=== PATIENT | male | born 1955 | race Caucasian/White ===

== ENCOUNTER 2018-05-10 11:36 | Inpatient (IN) | payer MEDICARE, OTHER ==
[~2018-05-10] VITALS: Ht 180.3 cm; Wt 82.0 kg
[2018-05-10 12:12] LABS: BASOPHILS # (AUTO) 0.1 X10'3 (0-0.2); BASOPHILS % (AUTO) 0.7 % (0-1); EOSINOPHILS # (AUTO) 0.2 X10'3 (0-0.9); EOSINOPHILS % (AUTO) 2.2 % (0-6); HEMATOCRIT 49.5 % (42.0-52.0); HEMOGLOBIN 16.7 g/dl (14.0-17.9); LYMPHOCYTES # (AUTO) 1.9 X10'3 (1.1-4.8); LYMPHOCYTES % (AUTO) 20.7 % (21-51); MEAN CORPUSCULAR HEMOGLOBIN 33.3 PG (27.0-31.0); MEAN CORPUSCULAR HGB CONC 33.8 % (33.0-36.5); MEAN CORPUSCULAR VOLUME 98.8 FL (78-98); MEAN PLATELET VOLUME 8.6 FL (7.4-10.4); MONOCYTES # (AUTO) 0.7 X10'3 (0-0.9); MONOCYTES % (AUTO) 8.3 % (2-12); NEUTROPHILS # (AUTO) 6.2 X10'3 (1.8-7.7); NEUTROPHILS % (AUTO) 68.1 % (42-75); PLATELET COUNT 232 X10'3 (140-440); RED BLOOD COUNT 5.01 X10'6 (4.70-6.10); RED CELL DISTRIBUTION WIDTH 12.3 % (11.5-14.5); WHITE BLOOD COUNT 9.1 X10'3 (4.5-11.0)
[2018-05-10 12:23] LABS: PARTIAL THROMBOPLASTIN TIME 28 SECONDS (22-32); PROTHROMBIN TIME 10.6 SECONDS (9.0-12.0)
[2018-05-10] MEDS ORDERED: aspirin 81mg tab.chew PO ONE (12:25)
[2018-05-10 12:27] LABS: ANION GAP 8 (8-16); CHLORIDE 100 MMOL/L (99-107); GLUCOSE 103 MG/DL (70-104); POTASSIUM 3.8 MMOL/L (3.5-5.1); SODIUM 135 MMOL/L (135-145); TOTAL CARBON DIOXIDE 27.3 MMOL/L (24-32)
[2018-05-10 12:28] LABS: ALANINE AMINOTRANSFERASE 49 U/L (12-78); ALBUMIN 4.2 G/DL (3.4-5.0); ALBUMIN/GLOBULIN RATIO 1.2 (1.1-1.5); ALKALINE PHOSPHATASE 72 IU/L (46-116); ASPARTATE AMINO TRANSFERASE 25 U/L (10-37); BILIRUBIN,TOTAL 1.5 MG/DL (0.1-1.0); BLOOD UREA NITROGEN 14 MG/DL (7-18); BUN/CREATININE RATIO 14.9 (5.4-32.0); CALCIUM 9.6 MG/DL (8.5-10.1); CREATININE 0.94 MG/DL (0.60-1.10); TOTAL PROTEIN 7.8 G/DL (6.4-8.2); eGFR 81 ML/MIN
[2018-05-10] MEDS ORDERED: aminophylline 250mg/10ml inj. IV PRN (13:00)
[2018-05-10] MEDS ORDERED: albuterol 2.5 MG/3 ML nebule NEB PRN (13:00)
[2018-05-10] MEDS ORDERED: acetaminophen 325mg tablet PO PRN ×2 (13:00)
[2018-05-10] MEDS ORDERED: HYDROcodone/acetaminophen 5mg/325mg tablet PO PRN (13:00)
[2018-05-10] MEDS ORDERED: HYDROcodone/acetaminophen 10/325mg tab PO PRN (13:00)
[2018-05-10] MEDS ORDERED: metoprolol tartrate 1mg/ml inj IV PRN (13:00)
[2018-05-10] MEDS ORDERED: mag hydrox/Alum hydrox/simeth 30ml oral suspension PO PRN (13:00)
[2018-05-10] MEDS ORDERED: regadenoson 0.4mg/5ml syringe IV ONE (13:00)
[2018-05-10] MEDS ORDERED: ondansetron/PF 4mg/2ml inj IV PRN (13:00)
[2018-05-10] MEDS ORDERED: magnesium hydroxide 30ml (MOM) UD suspension PO PRN (13:00)
[2018-05-10] MEDS ORDERED: nitroGLYCERIN 0.4mg SUBLingual tab SL PRN (13:00)
[2018-05-10] MEDS ORDERED: POTA10TA19 PO (14:09)
[2018-05-10] MEDS ORDERED: ASPI-611 PO (14:09)
[2018-05-10] MEDS ORDERED: GUAI400T77 PO (14:09)
[2018-05-10] MEDS ORDERED: LISI-604 PO (14:09)
[2018-05-10] MEDS ORDERED: TERA2CAP4 PO (14:09)
[2018-05-10] MEDS ORDERED: TIOT18CA3 INH (14:09)
[2018-05-10] MEDS ORDERED: ALB0.5UD IH (14:09)
[2018-05-10] MEDS ORDERED: GABA-532 PO (14:09)
[2018-05-10] MEDS ORDERED: ATOR40TA PO (14:09)
[2018-05-10] MEDS ORDERED: SILD50TA PO (14:09)
[2018-05-10] MEDS ORDERED: FISH12002 PO (14:09)
[2018-05-10] MEDS ORDERED: CHLO25TA2 PO (14:09)
[2018-05-10] MEDS ORDERED: FINA5TAB11 PO (14:09)
[2018-05-10 16:15] VITALS: BP 131/78
[2018-05-10] MEDS ORDERED: guaiFENesin 200 MG/10 ML oral syrup UD cup PO PRN (18:30)
[2018-05-10 20:00] VITALS: BP 102/65
[2018-05-10] MEDS: ipratropium 0.5 MG/2.5ML nebule IH SCH (20:39)
[2018-05-10] MEDS ORDERED: temazepam 15mg capsule PO PRN (21:00)
[2018-05-10] MEDS: Terazosin 1mg capsule PO SCH (21:30)
[2018-05-10] MEDS: gabapentin 300mg capsule PO SCH (21:30)
[2018-05-11] VITALS (10 sets, daily range): BP systolic 92–130; BP diastolic 59–79
[2018-05-11] MEDS: ipratropium 0.5 MG/2.5ML nebule IH SCH ×4 (02:47→20:32)
[2018-05-11 05:46] LABS: BASOPHILS # (AUTO) 0.1 X10'3 (0-0.2); BASOPHILS % (AUTO) 1.1 % (0-1); EOSINOPHILS # (AUTO) 0.3 X10'3 (0-0.9); HEMATOCRIT 48.5 % (42.0-52.0); HEMOGLOBIN 16.3 g/dl (14.0-17.9); LYMPHOCYTES # (AUTO) 1.7 X10'3 (1.1-4.8); MEAN CORPUSCULAR HEMOGLOBIN 33.4 PG (27.0-31.0); MEAN CORPUSCULAR HGB CONC 33.6 % (33.0-36.5); MEAN CORPUSCULAR VOLUME 99.5 FL (78-98); MONOCYTES # (AUTO) 0.9 X10'3 (0-0.9); MONOCYTES % (AUTO) 10.2 % (2-12); NEUTROPHILS # (AUTO) 5.7 X10'3 (1.8-7.7); NEUTROPHILS % (AUTO) 65.7 % (42-75); PLATELET COUNT 239 X10'3 (140-440); RED BLOOD COUNT 4.88 X10'6 (4.70-6.10); RED CELL DISTRIBUTION WIDTH 12.4 % (11.5-14.5); WHITE BLOOD COUNT 8.7 X10'3 (4.5-11.0)
[2018-05-11 06:07] LABS: ALBUMIN 3.6 G/DL (3.4-5.0); ANION GAP 9 (8-16); BLOOD UREA NITROGEN 17 MG/DL (7-18); BUN/CREATININE RATIO 19.3 (5.4-32.0); CALCIUM 8.7 MG/DL (8.5-10.1); CHLORIDE 100 MMOL/L (99-107); CHOLESTEROL 128 MG/DL (0-200); CREATININE 0.88 MG/DL (0.60-1.10); GLUCOSE 105 MG/DL (70-104); LDL CHOLESTEROL 76 MG/DL (50-100); SODIUM 137 MMOL/L (135-145); TOTAL CARBON DIOXIDE 27.8 MMOL/L (24-32); TRIGLYCERIDES 65 MG/DL (20-135); eGFR 87 ML/MIN
[2018-05-11 06:08] LABS: POTASSIUM 3.5 MMOL/L (3.5-5.1)
[2018-05-11 06:42] LABS: CHOL/HDL RATIO 2.8 (0.00-4.99); HDL CHOLESTEROL 45 MG/DL (35-60)
[2018-05-11] MEDS ORDERED: FISH OIL PO SCH (08:00)
[2018-05-11] MEDS ORDERED: [UNRECOGNIZED DRUG - OTHER] PO SCH (08:00)
[2018-05-11] MEDS ORDERED: BORAGE PO SCH (08:00)
[2018-05-11] MEDS ORDERED: regadenoson 0.4mg/5ml syringe IV ONE ×2 (08:00→09:14)
[2018-05-11] MEDS ORDERED: FLAX PO SCH (08:00)
[2018-05-11] MEDS ORDERED: aminophylline inj. 0 ML IV ONE (09:14)
[2018-05-11] MEDS: gabapentin 300mg capsule PO SCH ×3 (10:29→21:04)
[2018-05-11] MEDS: lisinopril 5mg tablet PO SCH (10:29)
[2018-05-11] MEDS: atorvastatin 20mg tablet PO SCH (10:30)
[2018-05-11] MEDS: aspirin 81mg tablet.DR PO SCH (10:30)
[2018-05-11] MEDS: potassium Cl 20 mEq SR tablet PO SCH (10:30)
[2018-05-11] MEDS: chlorthalidone 25mg tablet PO SCH (10:31)
[2018-05-11] MEDS: finasteride 5mg tablet PO SCH (10:31)
[2018-05-11] MEDS: heparin, porcine 5000 units/ml vial SQ SCH (20:00)
[2018-05-11] MEDS: carVEDilol 3.125mg tablet PO SCH (20:00)
[2018-05-11] MEDS: Terazosin 1mg capsule PO SCH (21:04)
[2018-05-12] VITALS (12 sets, daily range): BP systolic 88–135; BP diastolic 47–79
[2018-05-12] MEDS: ipratropium 0.5 MG/2.5ML nebule IH SCH ×4 (02:49→20:44)
[2018-05-12 04:57] LABS: BASOPHILS # (AUTO) 0.1 X10'3 (0-0.2); BASOPHILS % (AUTO) 1.1 % (0-1); EOSINOPHILS # (AUTO) 0.2 X10'3 (0-0.9); EOSINOPHILS % (AUTO) 1.9 % (0-6); HEMATOCRIT 47.3 % (42.0-52.0); HEMOGLOBIN 16.4 g/dl (14.0-17.9); LYMPHOCYTES # (AUTO) 1.8 X10'3 (1.1-4.8); MEAN CORPUSCULAR HEMOGLOBIN 33.8 PG (27.0-31.0); MEAN CORPUSCULAR HGB CONC 34.5 % (33.0-36.5); MEAN CORPUSCULAR VOLUME 97.8 FL (78-98); MEAN PLATELET VOLUME 8.9 FL (7.4-10.4); MONOCYTES # (AUTO) 0.8 X10'3 (0-0.9); NEUTROPHILS # (AUTO) 5.4 X10'3 (1.8-7.7); PLATELET COUNT 223 X10'3 (140-440); RED BLOOD COUNT 4.84 X10'6 (4.70-6.10); WHITE BLOOD COUNT 8.3 X10'3 (4.5-11.0)
[2018-05-12 06:53] LABS: ALBUMIN 3.5 G/DL (3.4-5.0); ANION GAP 11 (8-16); BLOOD UREA NITROGEN 21 MG/DL (7-18); BUN/CREATININE RATIO 20.2 (5.4-32.0); CALCIUM 9.1 MG/DL (8.5-10.1); CHLORIDE 100 MMOL/L (99-107); CREATININE 1.04 MG/DL (0.60-1.10); GLUCOSE 108 MG/DL (70-104); POTASSIUM 3.6 MMOL/L (3.5-5.1); SODIUM 136 MMOL/L (135-145); TOTAL CARBON DIOXIDE 24.7 MMOL/L (24-32); eGFR 72 ML/MIN
[2018-05-12] MEDS: carVEDilol 3.125mg tablet PO SCH ×2 (07:39→20:00)
[2018-05-12] MEDS: chlorthalidone 25mg tablet PO SCH (07:39)
[2018-05-12] MEDS: aspirin 81mg tablet.DR PO SCH (07:39)
[2018-05-12] MEDS: potassium Cl 20 mEq SR tablet PO SCH (07:39)
[2018-05-12] MEDS: atorvastatin 20mg tablet PO SCH (07:40)
[2018-05-12] MEDS: finasteride 5mg tablet PO SCH (07:40)
[2018-05-12] MEDS: gabapentin 300mg capsule PO SCH ×3 (07:40→20:29)
[2018-05-12] MEDS: lisinopril 5mg tablet PO SCH (07:40)
[2018-05-12] MEDS: heparin, porcine 5000 units/ml vial SQ SCH (07:41)
[2018-05-12] MEDS ORDERED: midazolam 2 mg/2 ml injection ONE (13:23)
[2018-05-12] MEDS ORDERED: nitroGLYCERIN-Tridil 50MG/D5W 250 ML IV ONE (13:23)
[2018-05-12] MEDS ORDERED: iohexol 350MG/ML 100ml bottle IV ONE (13:24)
[2018-05-12] MEDS ORDERED: LIDOcaine 1% 30ml preserv. free vial ONE (13:24)
[2018-05-12] MEDS ORDERED: fentaNYL/PF 50MCG/1 ML 2ML syringe ONE (13:24)
[2018-05-12] MEDS ORDERED: heparin 1,000unit/ml 10ml vial 10 ML ONE (13:24)
[2018-05-12] MEDS ORDERED: iohexol 350 MG/ML 50ML vial IV ONE (13:24)
[2018-05-12 17:46] LABS: ISTAT Hct MIX 46 %PCV (42-52); ISTAT O2 SATURATION MIX VENOUS 66 % (60-80); ISTAT SOURCE MIX
[2018-05-12 17:46] LABS: ISTAT HGB ART 15.6 g/dl (14.0-18.0); ISTAT Hct ART 46 %PCV (42-52); ISTAT O2 SATURATION ARTERIAL 94 % (95-98); ISTAT SOURCE ART
[2018-05-12] MEDS ORDERED: normal saline 1000ml 1,000 ML IV ONE (17:55)
[2018-05-12] MEDS: Terazosin 1mg capsule PO SCH (20:29)
[2018-05-13] VITALS: BP 98/68
[2018-05-13] MEDS: ipratropium 0.5 MG/2.5ML nebule IH SCH ×2 (02:23→08:39)
[2018-05-13 04:00] VITALS: BP 115/73
[2018-05-13 05:13] LABS: BASOPHILS # (AUTO) 0.1 X10'3 (0-0.2); BASOPHILS % (AUTO) 0.9 % (0-1); EOSINOPHILS # (AUTO) 0.2 X10'3 (0-0.9); EOSINOPHILS % (AUTO) 1.8 % (0-6); HEMATOCRIT 45.6 % (42.0-52.0); HEMOGLOBIN 15.5 g/dl (14.0-17.9); LYMPHOCYTES # (AUTO) 1.5 X10'3 (1.1-4.8); LYMPHOCYTES % (AUTO) 17.2 % (21-51); MEAN CORPUSCULAR HEMOGLOBIN 33.5 PG (27.0-31.0); MEAN CORPUSCULAR HGB CONC 33.9 % (33.0-36.5); MEAN CORPUSCULAR VOLUME 98.9 FL (78-98); MEAN PLATELET VOLUME 9.2 FL (7.4-10.4); MONOCYTES # (AUTO) 0.8 X10'3 (0-0.9); MONOCYTES % (AUTO) 8.5 % (2-12); NEUTROPHILS # (AUTO) 6.4 X10'3 (1.8-7.7); NEUTROPHILS % (AUTO) 71.6 % (42-75); PLATELET COUNT 224 X10'3 (140-440); RED BLOOD COUNT 4.61 X10'6 (4.70-6.10); RED CELL DISTRIBUTION WIDTH 12.2 % (11.5-14.5); WHITE BLOOD COUNT 8.9 X10'3 (4.5-11.0)
[2018-05-13 05:22] LABS: ALBUMIN 3.3 G/DL (3.4-5.0); ANION GAP 7 (8-16); BLOOD UREA NITROGEN 20 MG/DL (7-18); BUN/CREATININE RATIO 21.3 (5.4-32.0); CALCIUM 8.6 MG/DL (8.5-10.1); CHLORIDE 102 MMOL/L (99-107); CREATININE 0.94 MG/DL (0.60-1.10); GLUCOSE 101 MG/DL (70-104); POTASSIUM 3.7 MMOL/L (3.5-5.1); SODIUM 136 MMOL/L (135-145); TOTAL CARBON DIOXIDE 26.7 MMOL/L (24-32); eGFR 81 ML/MIN
[2018-05-13 07:00] VITALS: BP 96/63
[2018-05-13] MEDS: carVEDilol 3.125mg tablet PO SCH (07:24)
[2018-05-13] MEDS: chlorthalidone 25mg tablet PO SCH (07:24)
[2018-05-13] MEDS: lisinopril 5mg tablet PO SCH (07:24)
[2018-05-13] MEDS: gabapentin 300mg capsule PO SCH (07:31)
[2018-05-13] MEDS: finasteride 5mg tablet PO SCH (07:31)
[2018-05-13] MEDS: potassium Cl 20 mEq SR tablet PO SCH (07:31)
[2018-05-13] MEDS: atorvastatin 20mg tablet PO SCH (07:31)
[2018-05-13] MEDS: aspirin 81mg tablet.DR PO SCH (07:31)
[2018-05-13 11:48] VITALS: BP 101/74
[2018-05-13] MEDS ORDERED: COR3.125T PO (12:15)
== END 2018-05-13 12:52 | disposition home or self-care (01) | DRG 287 ==
LOC: ER 11:37 → OBSVTOIN 12:58 → SUR 3N 12:58 → CMPBEDREQ 19:45
PROVIDERS: ADMIT Hospitalist; ATTEND Family Medicine
PROC: 4A02XM4 Measurement of Cardiac Total Activity, External Approach (ICD-10-PCS; 2018-05-11)
PROC: 3E033HZ Introduction of Radioactive Substance into Peripheral Vein, Percutaneous Approach (ICD-10-PCS; 2018-05-11)
PROC: 3E02340 Introduction of Influenza Vaccine into Muscle, Percutaneous Approach (ICD-10-PCS; 2018-05-11)
PROC: 4A023N8 Measurement of Cardiac Sampling and Pressure, Bilateral, Percutaneous Approach (ICD-10-PCS; principal; 2018-05-12)
PROC: B2111ZZ Fluoroscopy of Multiple Coronary Arteries using Low Osmolar Contrast (ICD-10-PCS; 2018-05-12)
PROC: B2151ZZ Fluoroscopy of Left Heart using Low Osmolar Contrast (ICD-10-PCS; 2018-05-12)
DX: I25.10 Atherosclerotic heart disease of native coronary artery without angina pectoris (principal); B19.10 Unspecified viral hepatitis B without hepatic coma; B19.20 Unspecified viral hepatitis C without hepatic coma; E78.00 Pure hypercholesterolemia, unspecified; E78.5 Hyperlipidemia, unspecified; F12.90 Cannabis use, unspecified, uncomplicated; J44.9 Chronic obstructive pulmonary disease, unspecified; G47.33 Obstructive sleep apnea (adult) (pediatric); I10 Essential (primary) hypertension; N40.0 Benign prostatic hyperplasia without lower urinary tract symptoms; N52.9 Male erectile dysfunction, unspecified; F17.210 Nicotine dependence, cigarettes, uncomplicated; Z79.82 Long term (current) use of aspirin; Z79.899 Other long term (current) drug therapy; Z82.5 Family history of asthma and other chronic lower respiratory diseases; Z23 Encounter for immunization; Z72.89 Other problems related to lifestyle; Z71.6 Tobacco abuse counseling
CPT/HCPCS: 36415; 71046; 78452; 80048; 80053; 80061; 82803; 83605; 84484; 85014; 85025; 85610; 85730; 87040; 87070; 93005; 93017; 93306; 93460; 94640; 94760; 99152; 99285; A6257; A9500; C1769; G0378; J0280; J1644; J2250; J3010; J3490; J7030; Q2037; Q9967

== ENCOUNTER 2018-06-14 13:29 | Inpatient (IN) | payer MEDICARE, OTHER ==
[~2018-06-14] VITALS: Ht 180.3 cm; Wt 78.2 kg
[~2018-06-14 13:29] MED LIST: ALB0.5UD IH; ASPI-611 PO; ATOR40TA PO; CHLO25TA2 PO; COR3.125T PO; FINA5TAB11 PO; FISH12002 PO; GABA-532 PO; GUAI400T77 PO; LISI-604 PO; POTA10TA19 PO; TERA2CAP4 PO; TIOT18CA3 INH
[2018-06-14] MEDS ORDERED: albuterol 2.5 MG/3 ML nebule ONE (13:45)
[2018-06-14] MEDS ORDERED: methylPREDNISolone sod succ 125mg/2ml vial IV ONE (13:45)
[2018-06-14] MEDS ORDERED: normal saline 1000ML IV soln IVB ONE (13:45)
[2018-06-14] MEDS ORDERED: morphine 4 MG/ML inj SYRINge IV ONE (13:45)
[2018-06-14] MEDS ORDERED: magnesium 2GM in 50ml NS 50 ML IV ONE (13:45)
[2018-06-14] MEDS ORDERED: albuterol 2.5 MG/3 ML nebule CONTNEB PRN (13:45)
[2018-06-14 14:05] LABS: BASOPHILS % (AUTO) 0.4 % (0-1); EOSINOPHILS # (AUTO) 0.1 X10'3 (0-0.9); EOSINOPHILS % (AUTO) 0.7 % (0-6); HEMATOCRIT 49.7 % (42.0-52.0); HEMOGLOBIN 16.9 g/dl (14.0-17.9); MEAN CORPUSCULAR HEMOGLOBIN 33.4 PG (27.0-31.0); MEAN CORPUSCULAR VOLUME 98.3 FL (78-98); MEAN PLATELET VOLUME 8.3 FL (7.4-10.4); MONOCYTES # (AUTO) 0.8 X10'3 (0-0.9); MONOCYTES % (AUTO) 6.1 % (2-12); NEUTROPHILS # (AUTO) 10.4 X10'3 (1.8-7.7); NEUTROPHILS % (AUTO) 84.8 % (42-75); PLATELET COUNT 278 X10'3 (140-440); RED BLOOD COUNT 5.06 X10'6 (4.70-6.10); RED CELL DISTRIBUTION WIDTH 11.9 % (11.5-14.5); WHITE BLOOD COUNT 12.3 X10'3 (4.5-11.0)
[2018-06-14 14:18] LABS: ALANINE AMINOTRANSFERASE 43 U/L (12-78); ALBUMIN 4.1 G/DL (3.4-5.0); ALBUMIN/GLOBULIN RATIO 1.1 (1.1-1.5); ALKALINE PHOSPHATASE 80 IU/L (46-116); ANION GAP 12 (8-16); ASPARTATE AMINO TRANSFERASE 23 U/L (10-37); BILIRUBIN,TOTAL 0.7 MG/DL (0.1-1.0); BLOOD UREA NITROGEN 15 MG/DL (7-18); BUN/CREATININE RATIO 13.3 (5.4-32.0); CALCIUM 9.4 MG/DL (8.5-10.1); CHLORIDE 98 MMOL/L (99-107); CREATININE 1.13 MG/DL (0.60-1.10); GLUCOSE 129 MG/DL (70-104); POTASSIUM 3.9 MMOL/L (3.5-5.1); SODIUM 136 MMOL/L (135-145); TOTAL CARBON DIOXIDE 26.4 MMOL/L (24-32); TOTAL PROTEIN 7.8 G/DL (6.4-8.2); eGFR 65 ML/MIN
[2018-06-14 14:26] LABS: ABG BASE EXCESS 0.5 mmol/L (-2.0-3.0); ABG HCO3 23.8 mmol/L (22.0-26.0); ABG OXYGEN SATURATION 97.5 % (95-98); ABG PCO2 (T) 34.8 mmHg (35.0-48.0); ABG PH (T) 7.453 (7.350-7.450); ABG PO2 (T) 94.3 mmHg (83-108); ALLEN'S TEST Positive; FCOHb 3.7 % (0.5-1.5); FLOW 4 L/min; FO2Hb 93.9 % (94-100); TOTAL HEMOGLOBIN 15.6 G/dl (14.0-18.0)
[2018-06-14 14:35] LABS: INR 1.1 INR; PARTIAL THROMBOPLASTIN TIME 29 SECONDS (22-32)
[2018-06-14] MEDS ORDERED: normal saline 1000ml 1,000 ML IV SCH (16:06)
[2018-06-14] MEDS ORDERED: potassium Cl 40MEQ/NS 500ml 500 ML IV PRN ×2 (16:10)
[2018-06-14] MEDS ORDERED: mag hydrox/Alum hydrox/simeth 30ml oral suspension PO PRN (16:10)
[2018-06-14] MEDS ORDERED: acetaminophen 325mg tablet PO PRN (16:10)
[2018-06-14] MEDS ORDERED: magnesium Cl slow-release 64mg tablet PO PRN (16:10)
[2018-06-14] MEDS ORDERED: potassium Cl 20 mEq SR tablet PO PRN ×2 (16:10)
[2018-06-14] MEDS ORDERED: ondansetron/PF 4mg/2ml inj IV PRN (16:10)
[2018-06-14] MEDS ORDERED: magnesium 4gm in 100ml NS 100 ML IV PRN (16:10)
[2018-06-14] MEDS ORDERED: FISH12002 PO (17:31)
[2018-06-14] MEDS ORDERED: albuterol 2.5 mg/0.5ml nebule NEB PRN (18:30)
[2018-06-14] MEDS: albuterol 2.5 MG/3 ML nebule NEB PRN ×2 (18:38→18:49)
[2018-06-14] MEDS: docusate sod 100mg capsule PO SCH (19:29)
[2018-06-14] MEDS: carVEDilol 3.125mg tablet PO SCH (19:29)
[2018-06-14 19:30] VITALS: BP 99/71
[2018-06-14] MEDS: methylPREDNISolone sod succ/PF 40mg inj. IV SCH (19:30)
[2018-06-14] MEDS: heparin, porcine 5000 units/ml vial SQ SCH (19:32)
[2018-06-14] MEDS ORDERED: heparin, porcine 5000 units/ml vial SQ SCH (20:00)
[2018-06-14 21:07] VITALS: BP 103/58
[2018-06-14] MEDS: gabapentin 300mg capsule PO SCH (21:08)
[2018-06-14] MEDS: Terazosin 1mg capsule PO SCH (21:08)
[2018-06-14] MEDS: famotidine 20mg tablet PO SCH (21:08)
[2018-06-14] MEDS: ipratropium 0.5 MG/2.5ML nebule NEB SCH (21:37)
[2018-06-15] VITALS: BP 104/55
[2018-06-15] MEDS: ipratropium 0.5 MG/2.5ML nebule NEB SCH ×4 (02:43→21:53)
[2018-06-15 05:57] LABS: ALBUMIN 3.3 G/DL (3.4-5.0); ANION GAP 11 (8-16); BLOOD UREA NITROGEN 19 MG/DL (7-18); CALCIUM 8.6 MG/DL (8.5-10.1); CHLORIDE 98 MMOL/L (99-107); GLUCOSE 140 MG/DL (70-104); MAGNESIUM 2.1 MG/DL (1.5-2.4); SODIUM 133 MMOL/L (135-145); TOTAL CARBON DIOXIDE 24.5 MMOL/L (24-32); eGFR 75 ML/MIN
[2018-06-15 06:01] LABS: BASOPHILS # (AUTO) 0.1 X10'3 (0-0.2); EOSINOPHILS % (AUTO) 0 % (0-6); HEMATOCRIT 44.7 % (42.0-52.0); LYMPHOCYTES # (AUTO) 0.5 X10'3 (1.1-4.8); LYMPHOCYTES % (AUTO) 4.2 % (21-51); MEAN CORPUSCULAR HEMOGLOBIN 33.2 PG (27.0-31.0); MEAN CORPUSCULAR HGB CONC 33.7 % (33.0-36.5); MEAN CORPUSCULAR VOLUME 98.6 FL (78-98); MEAN PLATELET VOLUME 8.8 FL (7.4-10.4); MONOCYTES # (AUTO) 0.2 X10'3 (0-0.9); MONOCYTES % (AUTO) 1.6 % (2-12); NEUTROPHILS # (AUTO) 11.9 X10'3 (1.8-7.7); NEUTROPHILS % (AUTO) 93.2 % (42-75); PLATELET COUNT 257 X10'3 (140-440); RED BLOOD COUNT 4.53 X10'6 (4.70-6.10); WHITE BLOOD COUNT 12.8 X10'3 (4.5-11.0)
[2018-06-15] MEDS: K and/or MAG REPLACEMENT MC SCH (06:34)
[2018-06-15 07:00] VITALS: BP 102/64
[2018-06-15] MEDS: lisinopril 5mg tablet PO SCH (08:00)
[2018-06-15] MEDS: heparin, porcine 5000 units/ml vial SQ SCH ×2 (08:32→20:09)
[2018-06-15] MEDS: carVEDilol 3.125mg tablet PO SCH ×2 (08:32→20:00)
[2018-06-15] MEDS: aspirin 81mg tablet.DR PO SCH (08:32)
[2018-06-15] MEDS: docusate sod 100mg capsule PO SCH ×2 (08:32→20:08)
[2018-06-15] MEDS: methylPREDNISolone sod succ/PF 40mg inj. IV SCH ×2 (08:32→20:09)
[2018-06-15] MEDS: CefTRIAXone/D5W-Rocephin 1gm 50 ML IV SCH (08:32)
[2018-06-15] MEDS: gabapentin 300mg capsule PO SCH ×3 (08:32→20:08)
[2018-06-15] MEDS: atorvastatin 20mg tablet PO SCH (08:32)
[2018-06-15] MEDS: azithromycin 250mg tablet PO SCH (08:33)
[2018-06-15] MEDS: potassium chloride 10mEq ER tablet PO SCH (08:33)
[2018-06-15] MEDS: chlorthalidone 25mg tablet PO SCH (08:36)
[2018-06-15] MEDS: finasteride 5mg tablet PO SCH (10:10)
[2018-06-15 20:00] VITALS: BP 94/59
[2018-06-15] MEDS: lactobacillus rhamnosus 10,000 MMU CELLS/CAPSULE PO SCH (20:08)
[2018-06-15] MEDS: Terazosin 1mg capsule PO SCH (20:08)
[2018-06-15] MEDS: famotidine 20mg tablet PO SCH (20:08)
[2018-06-16] VITALS: BP 91/45
[2018-06-16 01:35] VITALS: BP 107/66
[2018-06-16] MEDS: ipratropium 0.5 MG/2.5ML nebule NEB SCH ×2 (02:48→08:04)
[2018-06-16 05:59] LABS: BASOPHILS % (AUTO) 0.1 % (0-1); EOSINOPHILS # (AUTO) 0.3 X10'3 (0-0.9); EOSINOPHILS % (AUTO) 1.3 % (0-6); HEMATOCRIT 44.1 % (42.0-52.0); HEMOGLOBIN 14.8 g/dl (14.0-17.9); LYMPHOCYTES # (AUTO) 0.8 X10'3 (1.1-4.8); LYMPHOCYTES % (AUTO) 3.9 % (21-51); MEAN CORPUSCULAR HEMOGLOBIN 33.3 PG (27.0-31.0); MEAN CORPUSCULAR HGB CONC 33.5 % (33.0-36.5); MEAN CORPUSCULAR VOLUME 99.4 FL (78-98); MEAN PLATELET VOLUME 8.8 FL (7.4-10.4); MONOCYTES # (AUTO) 0.6 X10'3 (0-0.9); MONOCYTES % (AUTO) 3.1 % (2-12); NEUTROPHILS # (AUTO) 18.4 X10'3 (1.8-7.7); NEUTROPHILS % (AUTO) 91.6 % (42-75); PLATELET COUNT 275 X10'3 (140-440); RED BLOOD COUNT 4.44 X10'6 (4.70-6.10); RED CELL DISTRIBUTION WIDTH 12.4 % (11.5-14.5)
[2018-06-16 06:26] LABS: ALBUMIN 3.3 G/DL (3.4-5.0); ANION GAP 10 (8-16); BLOOD UREA NITROGEN 24 MG/DL (7-18); BUN/CREATININE RATIO 21.6 (5.4-32.0); CALCIUM 8.7 MG/DL (8.5-10.1); CHLORIDE 100 MMOL/L (99-107); CREATININE 1.11 MG/DL (0.60-1.10); GLUCOSE 135 MG/DL (70-104); MAGNESIUM 2.1 MG/DL (1.5-2.4); POTASSIUM 3.9 MMOL/L (3.5-5.1); SODIUM 136 MMOL/L (135-145); TOTAL CARBON DIOXIDE 26.1 MMOL/L (24-32); eGFR 67 ML/MIN
[2018-06-16 07:00] VITALS: BP 106/63
[2018-06-16] MEDS: docusate sod 100mg capsule PO SCH (07:37)
[2018-06-16] MEDS: atorvastatin 20mg tablet PO SCH (07:37)
[2018-06-16] MEDS: aspirin 81mg tablet.DR PO SCH (07:37)
[2018-06-16] MEDS: azithromycin 250mg tablet PO SCH (07:37)
[2018-06-16] MEDS: lactobacillus rhamnosus 10,000 MMU CELLS/CAPSULE PO SCH (07:37)
[2018-06-16] MEDS: methylPREDNISolone sod succ/PF 40mg inj. IV SCH (07:37)
[2018-06-16] MEDS: gabapentin 300mg capsule PO SCH (07:37)
[2018-06-16] MEDS: CefTRIAXone/D5W-Rocephin 1gm 50 ML IV SCH (07:37)
[2018-06-16] MEDS: heparin, porcine 5000 units/ml vial SQ SCH (07:38)
[2018-06-16] MEDS: potassium chloride 10mEq ER tablet PO SCH (07:42)
[2018-06-16] MEDS: carVEDilol 3.125mg tablet PO SCH (08:00)
[2018-06-16] MEDS: chlorthalidone 25mg tablet PO SCH (08:00)
[2018-06-16] MEDS: lisinopril 5mg tablet PO SCH (08:00)
[2018-06-16] MEDS: K and/or MAG REPLACEMENT MC SCH (08:00)
[2018-06-16] MEDS: finasteride 5mg tablet PO SCH (09:35)
[2018-06-16 11:00] VITALS: BP 118/70
[2018-06-16] MEDS ORDERED: AZI25OT PO (11:31)
[2018-06-16] MEDS ORDERED: AMOX-422 PO (11:31)
[2018-06-16] MEDS ORDERED: PRED20TA PO (11:34)
== END 2018-06-16 13:40 | disposition home or self-care (01) | DRG 189 ==
LOC: ER 13:29 → ED HOLD 16:06 → SUR 3N 19:19
PROVIDERS: ADMIT Internal Medicine; ATTEND Internal Medicine
DX: J96.01 Acute respiratory failure with hypoxia (principal); J44.1 Chronic obstructive pulmonary disease with (acute) exacerbation; R65.10 Systemic inflammatory response syndrome (SIRS) of non-infectious origin without acute organ dysfunction; E78.00 Pure hypercholesterolemia, unspecified; E78.1 Pure hyperglyceridemia; J40 Bronchitis, not specified as acute or chronic; E78.5 Hyperlipidemia, unspecified; Z60.2 Problems related to living alone; F17.210 Nicotine dependence, cigarettes, uncomplicated; I10 Essential (primary) hypertension; N40.0 Benign prostatic hyperplasia without lower urinary tract symptoms; B19.20 Unspecified viral hepatitis C without hepatic coma; Z79.899 Other long term (current) drug therapy; Z79.82 Long term (current) use of aspirin; Z71.6 Tobacco abuse counseling
CPT/HCPCS: 36415; 36600; 71045; 80048; 80053; 82803; 83735; 83880; 85018; 85025; 85610; 85730; 87070; 93005; 94640; 94760; 96365; 96366; 96375; 99291; G0378; J0696; J1644; J2270; J2920; J2930; J3475; J7030; J7611

== ENCOUNTER 2018-06-27 17:28 | Emergency (ER) | payer MEDICARE, OTHER ==
[~2018-06-27] VITALS: Ht 180.3 cm; Wt 82.7 kg
[~2018-06-27 17:28] MED LIST changes: +AZI25OT PO; -GUAI400T77 PO; +PRED20TA PO
[2018-06-27 18:21] LABS: BASOPHILS % (AUTO) 0.1 % (0-1); EOSINOPHILS # (AUTO) 0.1 X10'3 (0-0.9); EOSINOPHILS % (AUTO) 0.5 % (0-6); HEMATOCRIT 50.6 % (42.0-52.0); HEMOGLOBIN 16.9 g/dl (14.0-17.9); LYMPHOCYTES # (AUTO) 2.6 X10'3 (1.1-4.8); LYMPHOCYTES % (AUTO) 14.3 % (21-51); MEAN CORPUSCULAR HEMOGLOBIN 33.1 PG (27.0-31.0); MEAN CORPUSCULAR HGB CONC 33.3 % (33.0-36.5); MEAN CORPUSCULAR VOLUME 99.4 FL (78-98); MEAN PLATELET VOLUME 8.1 FL (7.4-10.4); MONOCYTES % (AUTO) 5.6 % (2-12); NEUTROPHILS # (AUTO) 14.4 X10'3 (1.8-7.7); NEUTROPHILS % (AUTO) 79.5 % (42-75); PLATELET COUNT 258 X10'3 (140-440); RED BLOOD COUNT 5.09 X10'6 (4.70-6.10); RED CELL DISTRIBUTION WIDTH 12.6 % (11.5-14.5); WHITE BLOOD COUNT 18.1 X10'3 (4.5-11.0)
[2018-06-27 18:33] LABS: ALANINE AMINOTRANSFERASE 71 U/L (12-78); ALBUMIN 3.7 G/DL (3.4-5.0); ALBUMIN/GLOBULIN RATIO 1.2 (1.1-1.5); ALKALINE PHOSPHATASE 55 IU/L (46-116); ANION GAP 8 (8-16); ASPARTATE AMINO TRANSFERASE 22 U/L (10-37); BILIRUBIN,TOTAL 1.2 MG/DL (0.1-1.0); BLOOD UREA NITROGEN 24 MG/DL (7-18); BUN/CREATININE RATIO 15.8 (5.4-32.0); CALCIUM 8.8 MG/DL (8.5-10.1); CHLORIDE 102 MMOL/L (99-107); CREATININE 1.52 MG/DL (0.60-1.10); GLUCOSE 103 MG/DL (70-104); PARTIAL THROMBOPLASTIN TIME 25 SECONDS (22-32); PROTHROMBIN TIME 10.5 SECONDS (9.0-12.0); SODIUM 139 MMOL/L (135-145); TOTAL PROTEIN 6.9 G/DL (6.4-8.2); eGFR 46 ML/MIN
[2018-06-27] MEDS ORDERED: ipratropium/albuterol 3ml nebule NEB ONE ×2 (19:55→20:35)
[2018-06-27] MEDS ORDERED: predniSONE 20 mg tablet PO ONE (19:55)
[2018-06-27] MEDS ORDERED: iohexol 350MG/ML 100ml bottle IV ONE (20:40)
[2018-06-27] MEDS ORDERED: PRED20TA PO (21:41)
[2018-06-27] MEDS ORDERED: LEVO750T21 PO (21:41)
[2018-06-27 22:01] VITALS: BP 114/70
== END 2018-06-27 22:08 | disposition home or self-care (01) ==
LOC: ER 17:28
DX: J44.1 Chronic obstructive pulmonary disease with (acute) exacerbation (principal); J40 Bronchitis, not specified as acute or chronic; E78.00 Pure hypercholesterolemia, unspecified; I10 Essential (primary) hypertension; F17.200 Nicotine dependence, unspecified, uncomplicated; Z79.82 Long term (current) use of aspirin; Z79.899 Other long term (current) drug therapy
CPT/HCPCS: 36415; 71045; 71275; 80053; 84484; 85025; 85610; 85730; 93005; 94640; 94760; 99284; J7512; Q9967

== ENCOUNTER 2018-09-27 20:28 | Inpatient (IN) | payer MEDICARE, OTHER | END 2018-09-29 10:52 | disposition home or self-care (01) | LOC: ED HOLD 09-28 03:09 → SUR 3N 09-29 05:23 → ER 20:28 → SUR 3N 09-28 17:13 | DX: J96.90 Respiratory failure, unspecified, unspecified whether with hypoxia or hypercapnia (principal); J44.0 Chronic obstructive pulmonary disease with (acute) lower respiratory infection; J44.1 Chronic obstructive pulmonary disease with (acute) exacerbation; J20.9 Acute bronchitis, unspecified ==

== ENCOUNTER 2018-12-19 02:40 | Emergency (ER) | payer MEDICARE, OTHER ==
[~2018-12-19] VITALS: Ht 180.3 cm; Wt 85.0 kg
[~2018-12-19 02:40] MED LIST changes: -AZI25OT PO; -CHLO25TA2 PO; +CYAN500T63 PO; +FURO-150 PO; -LISI-604 PO; +LISI10TA4 PO; -PRED20TA PO
[2018-12-19 03:09] LABS: CLARITY,URINE CLEAR (Clear); COLOR,URINE ORANGE (Yellow)
[2018-12-19 03:16] LABS: UA COLLECTION TYPE CLN CATCH MIDSTREAM
[2018-12-19 03:17] LABS: MUCUS STRANDS MODERATE /LPF (Neg); SQUAMOUS EPITHELIAL CELL,UR FEW /LPF (FEW)
[2018-12-19 03:18] LABS: BACTERIA,URINE FEW /HPF (Neg); RBC,URINE 0-2 /HPF (0-2); WBC,URINE 0-4 /HPF (0-4)
[2018-12-19 04:56] VITALS: BP 122/78
== END 2018-12-19 05:24 | disposition left against medical advice (07) ==
LOC: ER 02:41
DX: R31.9 Hematuria, unspecified (principal); Z53.21 Procedure and treatment not carried out due to patient leaving prior to being seen by health care provider
CPT/HCPCS: 81001

== ENCOUNTER → 2019-07-04 | Emergency (ER) | payer MEDICARE, OTHER ==
[~2019-07-04] VITALS: Ht 182.9 cm; Wt 100.0 kg
[~2019-07-04] MED LIST changes: +BUDE10.2 INH; +CHLO25TA2 PO; +DOXY100C43 PO; +ETHA100T12; +GABA800T11 PO; +LISI-604 PO; +PRED20TA PO; +RIFA300C4; +albuterol 2.5 MG/3 ML nebule CONTNEB PRN; +azithromycin 250mg tablet PO ONE; +ipratropium 0.5 MG/2.5ML nebule IH ONE; +methylPREDNISolone sod succ 125mg/2ml vial IV ONE; +predniSONE 20 mg tablet PO ONE
[2019-07-04 13:08] LABS: BASOPHILS # (AUTO) 0.1 X10'3 (0-0.2); BASOPHILS % (AUTO) 0.7 % (0-1); EOSINOPHILS # (AUTO) 0.1 X10'3 (0-0.9); EOSINOPHILS % (AUTO) 0.8 % (0-6); HEMATOCRIT 43.3 % (42.0-52.0); HEMOGLOBIN 15.1 g/dl (14.0-17.9); LYMPHOCYTES # (AUTO) 1.7 X10'3 (1.1-4.8); LYMPHOCYTES % (AUTO) 23.5 % (21-51); MEAN CORPUSCULAR HEMOGLOBIN 33.5 PG (27.0-31.0); MEAN CORPUSCULAR HGB CONC 34.8 g/dL (33.0-36.5); MEAN CORPUSCULAR VOLUME 96.3 FL (78-98); MEAN PLATELET VOLUME 7.8 FL (7.4-10.4); MONOCYTES # (AUTO) 0.5 X10'3 (0-0.9); MONOCYTES % (AUTO) 7.2 % (2-12); NEUTROPHILS # (AUTO) 4.8 X10'3 (1.8-7.7); NEUTROPHILS % (AUTO) 67.8 % (42-75); PLATELET COUNT 193 X10'3 (140-440); RED CELL DISTRIBUTION WIDTH 11.9 % (11.5-14.5); WHITE BLOOD COUNT 7.2 X10'3 (4.5-11.0)
[2019-07-04 13:23] LABS: ALANINE AMINOTRANSFERASE 37 U/L (12-78); ALBUMIN 3.7 G/DL (3.4-5.0); ALBUMIN/GLOBULIN RATIO 1.2 (1.1-1.5); ALKALINE PHOSPHATASE 64 IU/L (46-116); ANION GAP 8 (8-16); ASPARTATE AMINO TRANSFERASE 26 U/L (10-37); BILIRUBIN,TOTAL 0.3 MG/DL (0.1-1.0); BLOOD UREA NITROGEN 13 MG/DL (7-18); BUN/CREATININE RATIO 15.5 (5.4-32.0); CALCIUM 8.1 MG/DL (8.5-10.1); CHLORIDE 104 MMOL/L (99-107); CREATININE 0.84 MG/DL (0.60-1.10); GLUCOSE 103 MG/DL (70-104); POTASSIUM 3.6 MMOL/L (3.5-5.1); SODIUM 140 MMOL/L (135-145); TOTAL CARBON DIOXIDE 28.3 MMOL/L (24-32); TOTAL PROTEIN 6.9 G/DL (6.4-8.2); eGFR > 90 ML/MIN
[2019-07-04 13:33] LABS: MAGNESIUM 1.9 MG/DL (1.5-2.4); TROPONIN I < 0.04 NG/ML (0.0-0.05)
--- NOTE | 2019-07-04 14:25 | NUR ---
PT FEELING BETTER AFTER BREATHING TREATMENT. PT DRINKING JUICE OKAY PER DR JAMESON. AT BEDSIDE.
[2019-07-04 14:26] VITALS: BP 129/76
== END | disposition home or self-care (01) ==
LOC: ER 12:17
DX: J44.1 Chronic obstructive pulmonary disease with (acute) exacerbation (principal); E78.00 Pure hypercholesterolemia, unspecified; I10 Essential (primary) hypertension; Z85.118 Personal history of other malignant neoplasm of bronchus and lung; Z79.82 Long term (current) use of aspirin; Z79.899 Other long term (current) drug therapy
CPT/HCPCS: 36415; 71045; 80053; 83735; 83880; 84145; 84484; 85025; 85610; 87502; 87503; 93005; 94644; 96374; 99285; J2930; J7512

== ENCOUNTER 2020-09-05 21:52 | Inpatient (IN) | payer OTHER, MEDICARE ==
[~2020-09-05] VITALS: Ht 177.8 cm; Wt 84.1 kg
[~2020-09-05 21:52] MED LIST changes: -ASPI-611 PO; -COR3.125T PO; -CYAN500T63 PO; +CYAN500T71 PO; -DOXY100C43 PO; -FURO-150 PO; -GABA-532 PO; -LISI-604 PO; +LISI-790 PO; -LISI10TA4 PO; -POTA10TA19 PO; -PRED20TA PO; -albuterol 2.5 MG/3 ML nebule CONTNEB PRN; -azithromycin 250mg tablet PO ONE; -ipratropium 0.5 MG/2.5ML nebule IH ONE; -methylPREDNISolone sod succ 125mg/2ml vial IV ONE; -predniSONE 20 mg tablet PO ONE
[2020-09-05 22:44] LABS: BASOPHILS # (AUTO) 0.1 X10'3 (0-0.2); BASOPHILS % (AUTO) 0.5 % (0-1); EOSINOPHILS # (AUTO) 0.1 X10'3 (0-0.9); EOSINOPHILS % (AUTO) 1.1 % (0-6); HEMATOCRIT 45.1 % (42.0-52.0); HEMOGLOBIN 15.4 g/dl (14.0-17.9); LYMPHOCYTES # (AUTO) 1.5 X10'3 (1.1-4.8); LYMPHOCYTES % (AUTO) 14.5 % (21-51); MEAN CORPUSCULAR HEMOGLOBIN 33.3 PG (27.0-31.0); MEAN CORPUSCULAR HGB CONC 34.2 g/dL (33.0-36.5); MEAN CORPUSCULAR VOLUME 97.2 FL (78-98); MEAN PLATELET VOLUME 8.3 FL (7.4-10.4); MONOCYTES # (AUTO) 0.9 X10'3 (0-0.9); MONOCYTES % (AUTO) 8.3 % (2-12); NEUTROPHILS % (AUTO) 75.6 % (42-75); PLATELET COUNT 190 X10'3 (140-440); RED BLOOD COUNT 4.64 X10'6 (4.70-6.10); RED CELL DISTRIBUTION WIDTH 11.9 % (11.5-14.5); WHITE BLOOD COUNT 10.6 X10'3 (4.5-11.0)
[2020-09-05] MEDS ORDERED: methylPREDNISolone sod succ 125mg/2ml vial IV ONE (22:55)
[2020-09-05] MEDS ORDERED: normal saline 1000ML IV soln IVB ONE (22:55)
[2020-09-05] MEDS ORDERED: albuterol 2.5 MG/3 ML nebule NEB ONE ×2 (22:55→23:45)
[2020-09-05 22:57] LABS: ALANINE AMINOTRANSFERASE 44 U/L (12-78); ALBUMIN 3.7 G/DL (3.4-5.0); ALBUMIN/GLOBULIN RATIO 1.2 (1.1-1.5); ALKALINE PHOSPHATASE 60 IU/L (46-116); ANION GAP 7 (8-16); ASPARTATE AMINO TRANSFERASE 22 U/L (10-37); BILIRUBIN,TOTAL 0.3 MG/DL (0.1-1.0); BLOOD UREA NITROGEN 12 MG/DL (7-18); BUN/CREATININE RATIO 15.8 (5.4-32.0); CALCIUM 8.7 MG/DL (8.5-10.1); CHLORIDE 107 MMOL/L (99-107); CREATININE 0.76 MG/DL (0.60-1.10); GLUCOSE 109 MG/DL (70-104); POTASSIUM 3.7 MMOL/L (3.5-5.1); SODIUM 141 MMOL/L (135-145); TOTAL CARBON DIOXIDE 26.9 MMOL/L (24-32); TOTAL PROTEIN 6.8 G/DL (6.4-8.2); eGFR > 90 ML/MIN
[2020-09-05 23:22] LABS: D-DIMER 0.37 MG/L FEU (0-0.50); PARTIAL THROMBOPLASTIN TIME 26 SECONDS (22-32)
[2020-09-06] MEDS ORDERED: ASPI-611 PO (00:30)
[2020-09-06] MEDS ORDERED: ETHA100T12 PO (00:42)
[2020-09-06] MEDS ORDERED: RIFA150C27 PO (00:42)
[2020-09-06] MEDS ORDERED: ATOR20TA66 PO (00:42)
[2020-09-06] MEDS ORDERED: AZIT500T9 PO (00:44)
[2020-09-06] MEDS ORDERED: azithromycin/NS 500mg/250ml 250 ML IV ONE (02:05)
[2020-09-06] MEDS: albuterol 2.5 MG/3 ML nebule CONTNEB PRN ×2 (02:25→04:05)
[2020-09-06] MEDS ORDERED: albuterol 2.5 MG/3 ML nebule CONTNEB PRN (02:35)
[2020-09-06] MEDS ORDERED: ondansetron/PF 4mg/2ml inj IV PRN (03:40)
[2020-09-06] MEDS ORDERED: mag hydrox/Alum hydrox/simeth 30ml oral suspension PO PRN (03:40)
[2020-09-06] MEDS ORDERED: potassium Cl 40MEQ/1/2NS 520ml 520 ML IV PRN ×2 (03:40)
[2020-09-06] MEDS ORDERED: potassium Cl 20 mEq SR tablet PO PRN ×2 (03:40)
[2020-09-06] MEDS ORDERED: acetaminophen 325mg tablet PO PRN (03:40)
[2020-09-06] MEDS ORDERED: magnesium hydroxide 30ml (MOM) UD suspension PO PRN (03:40)
[2020-09-06] MEDS ORDERED: ipratropium/albuterol 3ml nebule NEB PRN ×3 (03:45→23:55)
[2020-09-06 05:30] VITALS: BP 116/55
--- NOTE | 2020-09-06 05:33 | NUR ---
0512: Received freport from KATHE Queen 0520: Patient arrived to unit via [employer] transporting, bag of belongings arrived with patient. 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 Declined to get into a gown at this time. States:" I would just like to sleep right now. I have been here since 9:00PM". Vitals were taken, Nasal swab done. Patient alert x4. No needs identified at this time.
--- NOTE | 2020-09-06 06:15 | NUR ---
Patient in room [facility]. I have received report from KATHE King and had the opportunity to ask questions and assume patient care.
--- NOTE | 2020-09-06 06:23 | NUR ---
Problems reprioritized. Patient report given, questions answered & plan of care reviewed with KATHE Michelle.
[2020-09-06 06:30] VITALS: BP 124/70
[2020-09-06] MEDS: K and/or MAG REPLACEMENT MC SCH ×2 (07:39→20:00)
[2020-09-06] MEDS: budesonide 0.5mg/2ml UD nebule IH SCH ×2 (07:46→20:40)
[2020-09-06] MEDS: ipratropium/albuterol 3ml nebule NEB SCH ×3 (07:47→14:42)
[2020-09-06 11:00] VITALS: BP 119/75
[2020-09-06] MEDS: OMEGA-3/DHA/EPA/FISH OIL 1 EACH CAPSULE.DR PO SCH ×2 (11:00→20:25)
[2020-09-06] MEDS: atorvastatin 20mg tablet PO SCH (11:01)
[2020-09-06] MEDS: aspirin 81mg tab.chew PO SCH (11:02)
[2020-09-06] MEDS: methylPREDNISolone sod succ/PF 40mg inj. IV SCH ×2 (11:02→20:31)
[2020-09-06] MEDS: cyanocobalamin 500mcg tablet PO SCH (11:03)
[2020-09-06] MEDS: lisinopril 5mg tablet PO SCH (11:03)
[2020-09-06] MEDS: gabapentin 400mg capsule PO SCH ×3 (11:03→23:54)
[2020-09-06] MEDS: heparin, porcine 5000 units/ml vial SQ SCH ×2 (11:05→20:30)
[2020-09-06] MEDS: finasteride 5mg tablet PO SCH (12:03)
--- NOTE | 2020-09-06 15:20 | NUR ---
Problems reprioritized. Patient report given, questions answered & plan of care reviewed with KATHE King.
[2020-09-06] MEDS: nicotine 21mg patch - 24 hr TD SCH (15:55)
--- NOTE | 2020-09-06 18:50 | NUR ---
I have received report from KATHE Michelle and had the opportunity to ask questions and assume patient care.
[2020-09-06 19:00] VITALS: BP 135/76
[2020-09-06] MEDS: fluticasone nasal spray 16GM bottle NS SCH (20:35)
[2020-09-06] MEDS: polyvinyl alcohol ophthalmic drops 15ml bottle EACHEYE PRN (20:36)
[2020-09-06] MEDS ORDERED: azithromycin 250mg tablet PO SCH (21:00)
[2020-09-06] MEDS ORDERED: Terazosin 1mg capsule PO SCH (21:00)
--- NOTE | 2020-09-07 01:09 | NUR ---
pt refused 0000 vitals Addendum: 09/07/20 at 0110 by Fernando Porter RN Amended: Links added.
[2020-09-07] MEDS ORDERED: ipratropium/albuterol 3ml nebule NEB SCH (03:00)
[2020-09-07 05:43] LABS: BASOPHILS % (AUTO) 0.6 % (0-1); EOSINOPHILS % (AUTO) 0.1 % (0-6); HEMATOCRIT 43.5 % (42.0-52.0); LYMPHOCYTES # (AUTO) 1.9 X10'3 (1.1-4.8); MEAN CORPUSCULAR HEMOGLOBIN 33.9 PG (27.0-31.0); MEAN CORPUSCULAR HGB CONC 34.5 g/dL (33.0-36.5); MEAN CORPUSCULAR VOLUME 98.1 FL (78-98); MEAN PLATELET VOLUME 8.5 FL (7.4-10.4); MONOCYTES # (AUTO) 0.7 X10'3 (0-0.9); MONOCYTES % (AUTO) 7.9 % (2-12); NEUTROPHILS # (AUTO) 5.7 X10'3 (1.8-7.7); NEUTROPHILS % (AUTO) 68.4 % (42-75); PLATELET COUNT 175 X10'3 (140-440); RED BLOOD COUNT 4.43 X10'6 (4.70-6.10); RED CELL DISTRIBUTION WIDTH 12.2 % (11.5-14.5); WHITE BLOOD COUNT 8.3 X10'3 (4.5-11.0)
[2020-09-07 06:08] LABS: ALANINE AMINOTRANSFERASE 41 U/L (12-78); ALBUMIN 3.3 G/DL (3.4-5.0); ALKALINE PHOSPHATASE 57 IU/L (46-116); ANION GAP 9 (8-16); ASPARTATE AMINO TRANSFERASE 21 U/L (10-37); BILIRUBIN,TOTAL 0.4 MG/DL (0.1-1.0); BLOOD UREA NITROGEN 14 MG/DL (7-18); BUN/CREATININE RATIO 20.6 (5.4-32.0); CALCIUM 8.9 MG/DL (8.5-10.1); CHLORIDE 107 MMOL/L (99-107); CREATININE 0.68 MG/DL (0.60-1.10); GLUCOSE 126 MG/DL (70-104); POTASSIUM 3.8 MMOL/L (3.5-5.1); SODIUM 142 MMOL/L (135-145); TOTAL CARBON DIOXIDE 26.3 MMOL/L (24-32); TOTAL PROTEIN 6.5 G/DL (6.4-8.2); eGFR > 90 ML/MIN
--- NOTE | 2020-09-07 06:15 | NUR ---
Patient in room [facility]. I have received report from KATHE King and had the opportunity to ask questions and assume patient care.
--- NOTE | 2020-09-07 06:17 | NUR ---
Problems reprioritized. Patient report given, questions answered & plan of care reviewed with KATHE Michelle.
[2020-09-07 06:30] VITALS: BP 128/79
[2020-09-07] MEDS: ipratropium/albuterol 3ml nebule NEB SCH ×3 (07:00→11:20)
[2020-09-07] MEDS: K and/or MAG REPLACEMENT MC SCH (07:32)
[2020-09-07] MEDS: budesonide 0.5mg/2ml UD nebule IH SCH (07:43)
[2020-09-07] MEDS: fluticasone nasal spray 16GM bottle NS SCH (09:24)
[2020-09-07] MEDS: nicotine 21mg patch - 24 hr TD SCH (09:24)
[2020-09-07] MEDS: aspirin 81mg tab.chew PO SCH (09:24)
[2020-09-07] MEDS: methylPREDNISolone sod succ/PF 40mg inj. IV SCH (09:24)
[2020-09-07] MEDS: OMEGA-3/DHA/EPA/FISH OIL 1 EACH CAPSULE.DR PO SCH (09:24)
[2020-09-07] MEDS: cyanocobalamin 500mcg tablet PO SCH (09:25)
[2020-09-07] MEDS: heparin, porcine 5000 units/ml vial SQ SCH (09:25)
[2020-09-07] MEDS: gabapentin 400mg capsule PO SCH (09:25)
[2020-09-07] MEDS: finasteride 5mg tablet PO SCH (09:25)
[2020-09-07] MEDS: lisinopril 5mg tablet PO SCH (09:25)
[2020-09-07] MEDS: atorvastatin 20mg tablet PO SCH (09:25)
[2020-09-07] MEDS: polyvinyl alcohol ophthalmic drops 15ml bottle EACHEYE PRN (09:32)
[2020-09-07] MEDS ORDERED: PRED20TA PO (10:30)
[2020-09-07 11:00] VITALS: BP 159/91
--- NOTE | 2020-09-07 11:55 | NUR ---
DC inst provided to pt. IV DC'd, tip intact. All belongings sent w/pt. WC to vehicle @ main entrance.
[2020-09-08] MEDS ORDERED: ethambutol 400mg tablet PO SCH (08:00)
== END 2020-09-07 11:55 | disposition home or self-care (01) | DRG 192 ==
LOC: ER 21:53 → ED HOLD 09-06 03:40 → SUR 3N 09-06 05:10
PROVIDERS: ADMIT Internal Medicine; ATTEND Family Medicine
DX: J44.1 Chronic obstructive pulmonary disease with (acute) exacerbation (principal); E78.00 Pure hypercholesterolemia, unspecified; Z20.822 Contact with and (suspected) exposure to COVID-19; E78.5 Hyperlipidemia, unspecified; I25.10 Atherosclerotic heart disease of native coronary artery without angina pectoris; F17.200 Nicotine dependence, unspecified, uncomplicated; G62.9 Polyneuropathy, unspecified; I10 Essential (primary) hypertension; N40.0 Benign prostatic hyperplasia without lower urinary tract symptoms; Z85.118 Personal history of other malignant neoplasm of bronchus and lung; Z79.899 Other long term (current) drug therapy; Z71.6 Tobacco abuse counseling
CPT/HCPCS: 36415; 71045; 80053; 83880; 84484; 85025; 85379; 85610; 85730; 87081; 87635; 94640; 94760; 99291; A7015; C9803; G0378; J0456; J1644; J2920; J2930; J7030; J7626

== ENCOUNTER 2021-08-11 13:58 | Emergency (ER) | payer OTHER, MEDICARE ==
[~2021-08-11] VITALS: Ht 177.8 cm; Wt 83.2 kg
[~2021-08-11 13:58] MED LIST changes: +ASPI-611 PO; +ATOR20TA66 PO; -ATOR40TA PO; +AZIT500T9 PO; -ETHA100T12; +ETHA100T12 PO; -LISI-790 PO; +LISI5TAB22 PO; +RIFA150C27 PO; -RIFA300C4
[2021-08-11 14:42] LABS: BASOPHILS # (AUTO) 0.1 X10'3 (0-0.2); BASOPHILS % (AUTO) 0.6 % (0-1); EOSINOPHILS # (AUTO) 0.1 X10'3 (0-0.9); EOSINOPHILS % (AUTO) 1.1 % (0-6); HEMATOCRIT 48.5 % (42.0-52.0); LYMPHOCYTES # (AUTO) 1.5 X10'3 (1.1-4.8); LYMPHOCYTES % (AUTO) 18.1 % (21-51); MEAN CORPUSCULAR HEMOGLOBIN 34.5 PG (27.0-31.0); MEAN CORPUSCULAR HGB CONC 35.1 g/dL (33.0-36.5); MEAN CORPUSCULAR VOLUME 98.3 FL (78-98); MEAN PLATELET VOLUME 8.3 FL (7.4-10.4); MONOCYTES # (AUTO) 0.8 X10'3 (0-0.9); NEUTROPHILS # (AUTO) 5.8 X10'3 (1.8-7.7); NEUTROPHILS % (AUTO) 70.2 % (42-75); PLATELET COUNT 215 X10'3 (140-440); RED BLOOD COUNT 4.94 X10'6 (4.70-6.10); RED CELL DISTRIBUTION WIDTH 12.2 % (11.5-14.5); WHITE BLOOD COUNT 8.3 X10'3 (4.5-11.0)
[2021-08-11 14:56] LABS: ALANINE AMINOTRANSFERASE 47 U/L (12-78); ALBUMIN 3.8 G/DL (3.4-5.0); ALBUMIN/GLOBULIN RATIO 1.1 (1.1-1.5); ALKALINE PHOSPHATASE 61 IU/L (46-116); ANION GAP 6 (8-16); ASPARTATE AMINO TRANSFERASE 24 U/L (10-37); BILIRUBIN,TOTAL 0.4 MG/DL (0.1-1.0); BLOOD UREA NITROGEN 16 MG/DL (7-18); BUN/CREATININE RATIO 19.3 (5.4-32.0); CALCIUM 8.9 MG/DL (8.5-10.1); CHLORIDE 107 MMOL/L (99-107); CREATININE 0.83 MG/DL (0.60-1.10); GLUCOSE 96 MG/DL (70-104); POTASSIUM 4.3 MMOL/L (3.5-5.1); SODIUM 143 MMOL/L (135-145); TOTAL CARBON DIOXIDE 30.5 MMOL/L (24-32); TOTAL PROTEIN 7.3 G/DL (6.4-8.2); eGFR > 90 ML/MIN
--- NOTE | 2021-08-11 15:00 | NUR ---
first contact with pt. presents to ed with sob. respiratory meds recently changed by pcp. pt took three albuterol tx on the way to hospital. speaks full sentences, audible wheezes. awaiting md.
[2021-08-11] MEDS ORDERED: ipratropium/albuterol 3ml nebule NEB ONE ×2 (15:55→18:00)
[2021-08-11] MEDS ORDERED: methylPREDNISolone sod succ 125mg/2ml vial IV ONE (17:15)
[2021-08-11 17:44] VITALS: BP 136/83
[2021-08-11] MEDS ORDERED: AZIT250T83 PO (19:58)
== END 2021-08-11 20:16 | disposition home or self-care (01) ==
LOC: ER 13:58
DX: J44.1 Chronic obstructive pulmonary disease with (acute) exacerbation (principal); Z20.822 Contact with and (suspected) exposure to COVID-19; E78.00 Pure hypercholesterolemia, unspecified; I10 Essential (primary) hypertension; F12.90 Cannabis use, unspecified, uncomplicated; F17.200 Nicotine dependence, unspecified, uncomplicated; Z72.89 Other problems related to lifestyle; Z85.118 Personal history of other malignant neoplasm of bronchus and lung; Z79.2 Long term (current) use of antibiotics; Z79.899 Other long term (current) drug therapy
CPT/HCPCS: 36415; 71045; 80053; 83880; 84145; 84484; 85025; 87635; 93005; 94640; 96374; 99285; C9803; J2930; 94760

== ENCOUNTER 2021-10-29 02:02 | Emergency (ER) | payer OTHER, MEDICARE ==
[~2021-10-29] VITALS: Ht 180.3 cm; Wt 62.7 kg
[~2021-10-29 02:02] MED LIST changes: -RIFA150C27 PO; +RIFA150C7 PO
[2021-10-29] MEDS ORDERED: albuterol 2.5 MG/3 ML nebule CONTNEB ONE (02:45)
[2021-10-29] MEDS ORDERED: albuterol 2.5 MG/3 ML nebule ONE (02:52)
[2021-10-29] MEDS ORDERED: LORazepam 0.5 MG tablet PO ONE ×3 (03:05→04:10)
[2021-10-29 03:35] LABS: ALANINE AMINOTRANSFERASE 51 U/L (12-78); ALBUMIN 3.9 G/DL (3.4-5.0); ALBUMIN/GLOBULIN RATIO 1.2 (1.1-1.5); ALKALINE PHOSPHATASE 71 IU/L (46-116); ANION GAP 10 (8-16); ASPARTATE AMINO TRANSFERASE 28 U/L (10-37); BLOOD UREA NITROGEN 20 MG/DL (7-18); BUN/CREATININE RATIO 17.5 (5.4-32.0); CALCIUM 8.6 MG/DL (8.5-10.1); CHLORIDE 103 MMOL/L (99-107); CREATININE 1.14 MG/DL (0.60-1.10); GLUCOSE 119 MG/DL (70-104); POTASSIUM 4.2 MMOL/L (3.5-5.1); SODIUM 140 MMOL/L (135-145); TOTAL CARBON DIOXIDE 27.1 MMOL/L (24-32); TOTAL PROTEIN 7.2 G/DL (6.4-8.2); eGFR 64 ML/MIN
[2021-10-29 03:36] LABS: EOSINOPHILS # (AUTO) 0.1 X10'3 (0-0.9); EOSINOPHILS % (AUTO) 0.6 % (0-6)
[2021-10-29 03:38] LABS: BASOPHILS # (AUTO) 0.1 X10'3 (0-0.2); BASOPHILS % (AUTO) 0.5 % (0-1); HEMATOCRIT 49.3 % (42.0-52.0); HEMOGLOBIN 16.7 g/dl (14.0-17.9); LYMPHOCYTES % (AUTO) 9.3 % (21-51); MEAN CORPUSCULAR HEMOGLOBIN 33.4 PG (27.0-31.0); MEAN CORPUSCULAR HGB CONC 33.9 g/dL (33.0-36.5); MEAN CORPUSCULAR VOLUME 98.6 FL (78-98); MEAN PLATELET VOLUME 8.5 FL (7.4-10.4); MONOCYTES # (AUTO) 0.6 X10'3 (0-0.9); MONOCYTES % (AUTO) 5.7 % (2-12); NEUTROPHILS % (AUTO) 83.9 % (42-75); PLATELET COUNT 209 X10'3 (140-440); RED CELL DISTRIBUTION WIDTH 12.6 % (11.5-14.5); WHITE BLOOD COUNT 10.8 X10'3 (4.5-11.0)
[2021-10-29 04:41] LABS: ABG BASE EXCESS -1.7 mmol/L (-2.0-2.0); ABG HCO3 23.6 mmol/L (22.0-26.0); ABG OXYGEN SATURATION 95.4 % (94-97); ABG PCO2 (T) 41.4 mmHg (35.0-48.0); ABG PO2 (T) 77.9 mmHg (75.0-100.0); ALLEN'S TEST POSITIVE; FCOHb 6.3 % (0.0-3.9); FMetHb 0.2 % (0.0-1.5); FO2Hb 89.2 % (94-97); PATIENT TEMPERATURE 36.8; TOTAL HEMOGLOBIN 17.7 G/dl (14.0-18.0)
[2021-10-29] MEDS ORDERED: DOXY100C43 PO (05:03)
[2021-10-29] MEDS ORDERED: ALBU8HFA PO (05:03)
[2021-10-29] MEDS ORDERED: PRED20TA PO (05:03)
[2021-10-29 05:28] VITALS: BP 118/67
== END 2021-10-29 05:31 | disposition home or self-care (01) ==
LOC: ER 02:03
DX: J44.1 Chronic obstructive pulmonary disease with (acute) exacerbation (principal); J20.9 Acute bronchitis, unspecified; R06.02 Shortness of breath; R05.9 Cough, unspecified; E78.00 Pure hypercholesterolemia, unspecified; I10 Essential (primary) hypertension; F12.90 Cannabis use, unspecified, uncomplicated; Z72.0 Tobacco use; Z85.118 Personal history of other malignant neoplasm of bronchus and lung; Z72.89 Other problems related to lifestyle; Z79.82 Long term (current) use of aspirin; Z79.2 Long term (current) use of antibiotics; Z79.899 Other long term (current) drug therapy
CPT/HCPCS: 36415; 36600; 71045; 80053; 82803; 83880; 84484; 85018; 85025; 93005; 94640; 94644; 99285; A7015

== ENCOUNTER 2021-10-31 10:13 | Emergency (ER) | payer OTHER, MEDICARE ==
[~2021-10-31] VITALS: Ht 177.8 cm; Wt 81.0 kg
[~2021-10-31 10:13] MED LIST changes: +ALBU8HFA PO; +DOXY100C43 PO; +PRED20TA PO
[2021-10-31 11:22] LABS: BASOPHILS % (AUTO) 0.2 % (0-1); EOSINOPHILS % (AUTO) 0 % (0-6); HEMATOCRIT 49.4 % (42.0-52.0); HEMOGLOBIN 17.1 g/dl (14.0-17.9); LYMPHOCYTES # (AUTO) 0.5 X10'3 (1.1-4.8); LYMPHOCYTES % (AUTO) 5.2 % (21-51); MEAN CORPUSCULAR HEMOGLOBIN 34.1 PG (27.0-31.0); MEAN CORPUSCULAR HGB CONC 34.6 g/dL (33.0-36.5); MEAN CORPUSCULAR VOLUME 98.5 FL (78-98); MEAN PLATELET VOLUME 8.4 FL (7.4-10.4); MONOCYTES # (AUTO) 0.2 X10'3 (0-0.9); MONOCYTES % (AUTO) 1.6 % (2-12); PLATELET COUNT 197 X10'3 (140-440); RED BLOOD COUNT 5.02 X10'6 (4.70-6.10); WHITE BLOOD COUNT 9.7 X10'3 (4.5-11.0)
[2021-10-31] MEDS ORDERED: ipratropium/albuterol 3ml nebule NEB ONE (11:35)
[2021-10-31 11:37] LABS: ALANINE AMINOTRANSFERASE 49 U/L (12-78); ALBUMIN 4.1 G/DL (3.4-5.0); ALBUMIN/GLOBULIN RATIO 1.2 (1.1-1.5); ALKALINE PHOSPHATASE 67 IU/L (46-116); ANION GAP 11 (8-16); ASPARTATE AMINO TRANSFERASE 28 U/L (10-37); BILIRUBIN,TOTAL 0.9 MG/DL (0.1-1.0); BLOOD UREA NITROGEN 11 MG/DL (7-18); BUN/CREATININE RATIO 13.8 (5.4-32.0); CALCIUM 9.3 MG/DL (8.5-10.1); CHLORIDE 102 MMOL/L (99-107); GLUCOSE 139 MG/DL (70-104); POTASSIUM 4.2 MMOL/L (3.5-5.1); SODIUM 137 MMOL/L (135-145); TOTAL CARBON DIOXIDE 23.9 MMOL/L (24-32); TOTAL PROTEIN 7.5 G/DL (6.4-8.2); eGFR > 90 ML/MIN
[2021-10-31] MEDS ORDERED: LORazepam 2 mg/ml vial IV ONE (11:40)
[2021-10-31] MEDS ORDERED: iohexol 350MG/ML 100ml bottle IV ONE (11:48)
--- NOTE | 2021-10-31 11:57 | NUR ---
visitor at bedside.
[2021-10-31 14:16] VITALS: BP 132/83
--- NOTE | 2021-10-31 14:18 | NUR ---
pt taken on o2 maintaining stats 92-93% while in bed
== END 2021-10-31 15:02 | disposition home or self-care (01) ==
LOC: ER 10:13
DX: J44.1 Chronic obstructive pulmonary disease with (acute) exacerbation (principal); Z20.822 Contact with and (suspected) exposure to COVID-19; R42 Dizziness and giddiness; R06.02 Shortness of breath; E78.00 Pure hypercholesterolemia, unspecified; I10 Essential (primary) hypertension; F17.200 Nicotine dependence, unspecified, uncomplicated; F12.90 Cannabis use, unspecified, uncomplicated; Z85.118 Personal history of other malignant neoplasm of bronchus and lung; Z72.89 Other problems related to lifestyle; Z79.82 Long term (current) use of aspirin; Z79.2 Long term (current) use of antibiotics; Z79.899 Other long term (current) drug therapy
CPT/HCPCS: 36415; 71045; 71275; 80053; 83880; 84484; 85025; 87635; 94640; 96374; 99285; C9803; J2060; Q9967; 93005; 94760

== ENCOUNTER 2021-11-17 04:55 | Emergency (ER) | payer OTHER, MEDICARE ==
[~2021-11-17] VITALS: Ht 177.8 cm; Wt 83.2 kg
[~2021-11-17 04:55] MED LIST changes: -DOXY100C43 PO
[2021-11-17] MEDS ORDERED: ipratropium/albuterol 3ml nebule NEB ONE (05:05)
[2021-11-17] MEDS ORDERED: methylPREDNISolone sod succ 125mg/2ml vial IV ONE (05:05)
[2021-11-17 05:51] LABS: BASOPHILS % (AUTO) 0.4 % (0-1); EOSINOPHILS # (AUTO) 0.1 X10'3 (0-0.9); EOSINOPHILS % (AUTO) 0.9 % (0-6); HEMATOCRIT 47.2 % (42.0-52.0); HEMOGLOBIN 16.1 g/dl (14.0-17.9); LYMPHOCYTES # (AUTO) 1.2 X10'3 (1.1-4.8); LYMPHOCYTES % (AUTO) 14.4 % (21-51); MEAN CORPUSCULAR HEMOGLOBIN 33.5 PG (27.0-31.0); MEAN CORPUSCULAR HGB CONC 34.1 g/dL (33.0-36.5); MEAN CORPUSCULAR VOLUME 98.3 FL (78-98); MEAN PLATELET VOLUME 9.1 FL (7.4-10.4); MONOCYTES # (AUTO) 0.5 X10'3 (0-0.9); MONOCYTES % (AUTO) 5.8 % (2-12); NEUTROPHILS # (AUTO) 6.4 X10'3 (1.8-7.7); NEUTROPHILS % (AUTO) 78.5 % (42-75); PLATELET COUNT 177 X10'3 (140-440); RED CELL DISTRIBUTION WIDTH 12.6 % (11.5-14.5); WHITE BLOOD COUNT 8.2 X10'3 (4.5-11.0)
[2021-11-17] MEDS ORDERED: albuterol 2.5 MG/3 ML nebule CONTNEB PRN (06:05)
[2021-11-17 06:20] LABS: ALANINE AMINOTRANSFERASE 53 U/L (12-78); ALBUMIN 3.5 G/DL (3.4-5.0); ALKALINE PHOSPHATASE 67 IU/L (46-116); ANION GAP 9 (8-16); BILIRUBIN,TOTAL 0.7 MG/DL (0.1-1.0); BLOOD UREA NITROGEN 15 MG/DL (7-18); BUN/CREATININE RATIO 19.5 (5.4-32.0); CALCIUM 8.5 MG/DL (8.5-10.1); CHLORIDE 106 MMOL/L (99-107); CREATININE 0.77 MG/DL (0.60-1.10); GLUCOSE 127 MG/DL (70-104); SODIUM 141 MMOL/L (135-145); TOTAL CARBON DIOXIDE 26.4 MMOL/L (24-32); eGFR > 90 ML/MIN
[2021-11-17 06:31] LABS: ASPARTATE AMINO TRANSFERASE 39 U/L (10-37); POTASSIUM 5.1 MMOL/L (3.5-5.1)
[2021-11-17] MEDS ORDERED: albuterol 2.5 MG/3 ML nebule NEB ONE (06:50)
[2021-11-17] MEDS ORDERED: PRED20TA PO (10:01)
[2021-11-17 10:19] VITALS: BP 105/67
== END 2021-11-17 10:21 | disposition home or self-care (01) ==
LOC: ER 04:55
DX: J44.1 Chronic obstructive pulmonary disease with (acute) exacerbation (principal); R06.02 Shortness of breath; R05.9 Cough, unspecified; E78.00 Pure hypercholesterolemia, unspecified; I10 Essential (primary) hypertension; F17.200 Nicotine dependence, unspecified, uncomplicated; F12.90 Cannabis use, unspecified, uncomplicated; Z72.89 Other problems related to lifestyle; Z85.118 Personal history of other malignant neoplasm of bronchus and lung
CPT/HCPCS: 36415; 71045; 80053; 83605; 84484; 85025; 87040; 93005; 94640; 96374; 99285; J2930; 94760

== ENCOUNTER 2021-12-18 21:10 | Emergency (ER) | payer OTHER, MEDICARE ==
[~2021-12-18] VITALS: Ht 177.8 cm; Wt 81.0 kg
[~2021-12-18 21:10] MED LIST changes: -ALBU8HFA PO
[2021-12-18] MEDS ORDERED: HYDROcodone/acetaminophen 5mg/325mg tablet PO ONE (21:45)
[2021-12-19 04:30] VITALS: BP 119/76
[2021-12-19] MEDS ORDERED: diazepam inj 5 MG/ML inj. IM ONE (05:20)
[2021-12-19] MEDS ORDERED: ketorolac trometh. 30mg/ml inj. IM ONE (05:20)
[2021-12-19] MEDS ORDERED: CYCL-1 PO (05:42)
[2021-12-19] MEDS ORDERED: IBUP-1985 PO (05:42)
== END 2021-12-19 06:03 | disposition home or self-care (01) ==
LOC: ER 21:10
DX: M54.9 Dorsalgia, unspecified (principal); E78.00 Pure hypercholesterolemia, unspecified; I10 Essential (primary) hypertension; J43.9 Emphysema, unspecified; F12.10 Cannabis abuse, uncomplicated; Z79.899 Other long term (current) drug therapy
CPT/HCPCS: 96372; 99284; J1885; J3360

== ENCOUNTER 2021-12-27 06:23 | Emergency (ER) | payer OTHER, MEDICARE ==
[~2021-12-27] VITALS: Ht 177.8 cm; Wt 80.9 kg
[~2021-12-27 06:23] MED LIST changes: +CYCL-1 PO; +IBUP-1985 PO; -PRED20TA PO
[2021-12-27] MEDS ORDERED: albuterol 2.5 MG/3 ML nebule CONTNEB PRN (07:00)
[2021-12-27] MEDS ORDERED: methylPREDNISolone sod succ 125mg/2ml vial IV ONE (07:00)
[2021-12-27] MEDS ORDERED: ipratropium 0.5 MG/2.5ML nebule IH ONE (07:00)
[2021-12-27] MEDS ORDERED: magnesium 2GM in 50ml NS 50 ML IV ONE (07:00)
[2021-12-27 07:08] LABS: BASOPHILS % (AUTO) 0.4 % (0-1); EOSINOPHILS % (AUTO) 0.2 % (0-6); HEMOGLOBIN 15.2 g/dl (14.0-17.9); LYMPHOCYTES # (AUTO) 1.1 X10'3 (1.1-4.8); LYMPHOCYTES % (AUTO) 13.9 % (21-51); MEAN CORPUSCULAR HEMOGLOBIN 33.3 PG (27.0-31.0); MEAN CORPUSCULAR HGB CONC 33.9 g/dL (33.0-36.5); MEAN CORPUSCULAR VOLUME 98.2 FL (78-98); MEAN PLATELET VOLUME 8.1 FL (7.4-10.4); MONOCYTES # (AUTO) 0.7 X10'3 (0-0.9); MONOCYTES % (AUTO) 8.9 % (2-12); NEUTROPHILS # (AUTO) 6.2 X10'3 (1.8-7.7); NEUTROPHILS % (AUTO) 76.6 % (42-75); PLATELET COUNT 188 X10'3 (140-440); RED BLOOD COUNT 4.58 X10'6 (4.70-6.10); RED CELL DISTRIBUTION WIDTH 12.5 % (11.5-14.5)
[2021-12-27 07:37] LABS: ALANINE AMINOTRANSFERASE 34 U/L (12-78); ALBUMIN 3.2 G/DL (3.4-5.0); ALBUMIN/GLOBULIN RATIO 1.1 (1.1-1.5); ALKALINE PHOSPHATASE 48 IU/L (46-116); ANION GAP 6 (8-16); ASPARTATE AMINO TRANSFERASE 19 U/L (10-37); BILIRUBIN,TOTAL 0.3 MG/DL (0.1-1.0); BLOOD UREA NITROGEN 16 MG/DL (7-18); BUN/CREATININE RATIO 17.8 (5.4-32.0); CALCIUM 8.5 MG/DL (8.5-10.1); CHLORIDE 109 MMOL/L (99-107); GLUCOSE 106 MG/DL (70-104); SODIUM 146 MMOL/L (135-145); TOTAL CARBON DIOXIDE 31.1 MMOL/L (24-32); TOTAL PROTEIN 6.2 G/DL (6.4-8.2); eGFR 84 ML/MIN
--- NOTE | 2021-12-27 09:13 | NUR ---
TC FROM [facility] FOR CONDITION REPORT. [facility] WILL BE ABLE TO PROVIDE TRANSPORTATION IF/WHEN PATIENT IS DISCHARGED. PHONE NUMBER [phone].
[2021-12-27] MEDS ORDERED: dexamethasone sod phosphate 10mg/ml inj IV STA (10:27)
[2021-12-27] MEDS ORDERED: PRED20TA PO (10:29)
[2021-12-27 12:15] VITALS: BP 120/83
== END 2021-12-27 12:17 | disposition home or self-care (01) ==
LOC: ER 06:23
DX: J44.1 Chronic obstructive pulmonary disease with (acute) exacerbation (principal); R06.02 Shortness of breath; E78.00 Pure hypercholesterolemia, unspecified; I10 Essential (primary) hypertension; J43.9 Emphysema, unspecified; F12.90 Cannabis use, unspecified, uncomplicated; Z72.89 Other problems related to lifestyle; Z85.118 Personal history of other malignant neoplasm of bronchus and lung; Z79.82 Long term (current) use of aspirin; Z79.2 Long term (current) use of antibiotics; Z79.899 Other long term (current) drug therapy
CPT/HCPCS: 36415; 71045; 80053; 83735; 83880; 84145; 84484; 85025; 93005; 94640; 94644; 96365; 96366; 96375; 99285; J1100; J2930; J3475; 94760; 96361; 96374; A7015

== ENCOUNTER 2022-01-29 23:35 | Emergency (ER) | payer OTHER, MEDICARE ==
[~2022-01-29] VITALS: Ht 177.8 cm; Wt 81.8 kg
[~2022-01-29 23:35] MED LIST changes: -ASPI-611 PO; -AZIT500T9 PO; -BUDE10.2 INH; +BUPR75TA8 PO; +CEFD300C3 PO; -CHLO25TA2 PO; +CHOL400T32 PO; -CYCL-1 PO; -ETHA100T12 PO; -FISH12002 PO; +GABA-534 PO; -GABA800T11 PO; +IPRA4AER IH; -LISI5TAB22 PO; +MOME13HF2 INH; +OMEG1CAP2 PO; +PRED20TA PO; -RIFA150C7 PO
[2022-01-29] MEDS ORDERED: LORazepam 2 mg/ml vial IV ONE (23:40)
[2022-01-29] MEDS ORDERED: methylPREDNISolone sod succ 125mg/2ml vial IV ONE (23:40)
[2022-01-29] MEDS ORDERED: albuterol 2.5 MG/3 ML nebule CONTNEB PRN (23:40)
[2022-01-30 00:23] LABS: ALANINE AMINOTRANSFERASE 97 U/L (12-78); ALBUMIN 3.3 G/DL (3.4-5.0); ALKALINE PHOSPHATASE 55 IU/L (46-116); ANION GAP 4 (8-16); ASPARTATE AMINO TRANSFERASE 33 U/L (10-37); BILIRUBIN,TOTAL 0.5 MG/DL (0.1-1.0); BLOOD UREA NITROGEN 23 MG/DL (7-18); BUN/CREATININE RATIO 24.2 (5.4-32.0); CALCIUM 8.9 MG/DL (8.5-10.1); CHLORIDE 108 MMOL/L (99-107); CREATININE 0.95 MG/DL (0.60-1.10); GLUCOSE 153 MG/DL (70-104); POTASSIUM 3.8 MMOL/L (3.5-5.1); SODIUM 145 MMOL/L (135-145); TOTAL CARBON DIOXIDE 32.9 MMOL/L (24-32); TOTAL PROTEIN 6.5 G/DL (6.4-8.2); eGFR 79 ML/MIN
[2022-01-30 00:41] LABS: BASOPHILS % (AUTO) 0.1 % (0-1); EOSINOPHILS % (AUTO) 0.1 % (0-6); HEMATOCRIT 40.9 % (42.0-52.0); HEMOGLOBIN 13.8 g/dl (14.0-17.9); LYMPHOCYTES # (AUTO) 1.1 X10'3 (1.1-4.8); LYMPHOCYTES % (AUTO) 9.1 % (21-51); MEAN CORPUSCULAR HEMOGLOBIN 33.2 PG (27.0-31.0); MEAN CORPUSCULAR HGB CONC 33.6 g/dL (33.0-36.5); MEAN CORPUSCULAR VOLUME 98.7 FL (78-98); MEAN PLATELET VOLUME 7.7 FL (7.4-10.4); MONOCYTES # (AUTO) 0.9 X10'3 (0-0.9); NEUTROPHILS # (AUTO) 9.5 X10'3 (1.8-7.7); NEUTROPHILS % (AUTO) 82.7 % (42-75); PLATELET COUNT 243 X10'3 (140-440); RED BLOOD COUNT 4.14 X10'6 (4.70-6.10); RED CELL DISTRIBUTION WIDTH 12.8 % (11.5-14.5); WHITE BLOOD COUNT 11.5 X10'3 (4.5-11.0)
[2022-01-30 05:31] VITALS: BP 112/62
== END 2022-01-30 07:06 | disposition home or self-care (01) ==
LOC: ER 23:36
DX: R06.03 Acute respiratory distress (principal); J44.1 Chronic obstructive pulmonary disease with (acute) exacerbation; I10 Essential (primary) hypertension; J44.9 Chronic obstructive pulmonary disease, unspecified; F17.200 Nicotine dependence, unspecified, uncomplicated; F12.90 Cannabis use, unspecified, uncomplicated
CPT/HCPCS: 36415; 80053; 83880; 84484; 85025; 93005; 94640; 94644; 96374; 96375; 99285; J2060; J2930; 94760; A7015

== ENCOUNTER 2022-02-26 00:54 | Emergency (ER) | payer OTHER, MEDICARE ==
[~2022-02-26] VITALS: Ht 177.8 cm; Wt 80.0 kg
[~2022-02-26 00:54] MED LIST changes: +ACET-1025 PO; +ARFO15VI NEB; +AZI25OT PO; -CEFD300C3 PO; +IBUP-1984 PO; -IBUP-1985 PO; -MOME13HF2 INH; +NICO-687 TOP; +OMEG-79 PO; -OMEG1CAP2 PO; -PRED20TA PO; +PRED5TAB PO; +ROFL500T7 PO; -TIOT18CA3 INH; +VARE1TAB24 PO
[2022-02-26] MEDS ORDERED: methylPREDNISolone sod succ 125mg/2ml vial IV ONE (01:25)
[2022-02-26] MEDS ORDERED: ipratropium/albuterol 3ml nebule NEB PRN (01:25)
[2022-02-26 02:04] LABS: ALANINE AMINOTRANSFERASE 61 U/L (12-78); ALBUMIN 3.1 G/DL (3.4-5.0); ALBUMIN/GLOBULIN RATIO 0.9 (1.1-1.5); ALKALINE PHOSPHATASE 60 IU/L (46-116); ANION GAP 9 (8-16); ASPARTATE AMINO TRANSFERASE 23 U/L (10-37); BILIRUBIN,TOTAL 0.7 MG/DL (0.1-1.0); BLOOD UREA NITROGEN 17 MG/DL (7-18); BUN/CREATININE RATIO 18.5 (5.4-32.0); CALCIUM 8.5 MG/DL (8.5-10.1); CHLORIDE 103 MMOL/L (99-107); CREATININE 0.92 MG/DL (0.60-1.10); GLUCOSE 140 MG/DL (70-104); POTASSIUM 4.3 MMOL/L (3.5-5.1); SODIUM 142 MMOL/L (135-145); TOTAL CARBON DIOXIDE 30.5 MMOL/L (24-32); TOTAL PROTEIN 6.5 G/DL (6.4-8.2); eGFR 82 ML/MIN
[2022-02-26 02:15] LABS: BASOPHILS % (AUTO) 0.2 % (0-1); EOSINOPHILS % (AUTO) 0.1 % (0-6); HEMATOCRIT 36.4 % (42.0-52.0); HEMOGLOBIN 12.7 g/dl (14.0-17.9); LYMPHOCYTES # (AUTO) 0.7 X10'3 (1.1-4.8); LYMPHOCYTES % (AUTO) 6.2 % (21-51); MEAN CORPUSCULAR HEMOGLOBIN 33.7 PG (27.0-31.0); MEAN CORPUSCULAR HGB CONC 34.9 g/dL (33.0-36.5); MEAN CORPUSCULAR VOLUME 96.8 FL (78-98); MEAN PLATELET VOLUME 6.9 FL (7.4-10.4); MONOCYTES # (AUTO) 0.3 X10'3 (0-0.9); MONOCYTES % (AUTO) 2.3 % (2-12); NEUTROPHILS # (AUTO) 10.2 X10'3 (1.8-7.7); NEUTROPHILS % (AUTO) 91.2 % (42-75); PLATELET COUNT 237 X10'3 (140-440); RED BLOOD COUNT 3.76 X10'6 (4.70-6.10); RED CELL DISTRIBUTION WIDTH 13.2 % (11.5-14.5); WHITE BLOOD COUNT 11.2 X10'3 (4.5-11.0)
[2022-02-26] MEDS ORDERED: ipratropium/albuterol 3ml nebule NEB ONE (06:15)
[2022-02-26 07:30] VITALS: BP 157/74
--- NOTE | 2022-02-26 07:38 | NUR ---
Pt given and understands d/c instructions. IV d/c'd, catheter was intact. Escorted out of the department via wheelchair and on 3L NC.
[2022-03-02] MEDS ORDERED: AZIT-83 PO (05:59)
[2022-03-02] MEDS ORDERED: PRED20TA PO (05:59)
== END 2022-02-26 07:38 | disposition home or self-care (01) ==
LOC: ER 00:55
DX: J44.9 Chronic obstructive pulmonary disease, unspecified (principal); E78.00 Pure hypercholesterolemia, unspecified; I10 Essential (primary) hypertension; F17.200 Nicotine dependence, unspecified, uncomplicated; F12.10 Cannabis abuse, uncomplicated; Z79.899 Other long term (current) drug therapy; Z79.1 Long term (current) use of non-steroidal anti-inflammatories (NSAID); Z79.2 Long term (current) use of antibiotics
CPT/HCPCS: 36415; 71045; 80053; 83880; 84484; 85025; 93005; 94640; 96374; 99285; J2930; 94760

== ENCOUNTER 2022-03-02 02:53 | Emergency (ER) | payer OTHER, MEDICARE ==
[~2022-03-02] VITALS: Ht 177.8 cm; Wt 80.0 kg
[2022-03-02] MEDS ORDERED: methylPREDNISolone sod succ 125mg/2ml vial IV ONE (03:00)
[2022-03-02] MEDS ORDERED: LORazepam 2 mg/ml vial IV ONE (03:00)
[2022-03-02] MEDS ORDERED: ipratropium/albuterol 3ml nebule NEB ONE (03:00)
[2022-03-02 04:04] LABS: BASOPHILS % (AUTO) 0.3 % (0-1); EOSINOPHILS % (AUTO) 0.1 % (0-6); LYMPHOCYTES # (AUTO) 0.8 X10'3 (1.1-4.8); LYMPHOCYTES % (AUTO) 5.5 % (21-51); MEAN CORPUSCULAR HEMOGLOBIN 32.7 PG (27.0-31.0); MEAN CORPUSCULAR HGB CONC 33.2 g/dL (33.0-36.5); MEAN CORPUSCULAR VOLUME 98.4 FL (78-98); MEAN PLATELET VOLUME 7.2 FL (7.4-10.4); MONOCYTES # (AUTO) 0.8 X10'3 (0-0.9); MONOCYTES % (AUTO) 6.1 % (2-12); NEUTROPHILS # (AUTO) 12.2 X10'3 (1.8-7.7); PLATELET COUNT 261 X10'3 (140-440); RED BLOOD COUNT 3.96 X10'6 (4.70-6.10); RED CELL DISTRIBUTION WIDTH 13.5 % (11.5-14.5); WHITE BLOOD COUNT 13.9 X10'3 (4.5-11.0)
[2022-03-02 04:16] LABS: ALANINE AMINOTRANSFERASE 31 U/L (12-78); ALBUMIN 3.4 G/DL (3.4-5.0); ALBUMIN/GLOBULIN RATIO 1.1 (1.1-1.5); ALKALINE PHOSPHATASE 57 IU/L (46-116); ANION GAP 6 (8-16); ASPARTATE AMINO TRANSFERASE 22 U/L (10-37); BILIRUBIN,TOTAL 0.8 MG/DL (0.1-1.0); BLOOD UREA NITROGEN 20 MG/DL (7-18); BUN/CREATININE RATIO 25.3 (5.4-32.0); CALCIUM 8.5 MG/DL (8.5-10.1); CHLORIDE 104 MMOL/L (99-107); CREATININE 0.79 MG/DL (0.60-1.10); GLUCOSE 126 MG/DL (70-104); POTASSIUM 4.2 MMOL/L (3.5-5.1); SODIUM 142 MMOL/L (135-145); TOTAL CARBON DIOXIDE 31.6 MMOL/L (24-32); TOTAL PROTEIN 6.6 G/DL (6.4-8.2); eGFR > 90 ML/MIN
[2022-03-02 04:23] LABS: MAGNESIUM 2.1 MG/DL (1.5-2.4)
[2022-03-02] MEDS ORDERED: AZIT-83 PO ×2 (05:59)
[2022-03-02] MEDS ORDERED: PRED20TA PO ×2 (05:59)
[2022-03-02 06:25] VITALS: BP 149/82
--- NOTE | 2022-03-02 07:25 | NUR ---
Wheelchair given to patient's , pt leaving ED via wheelchair.
[2022-03-08] MEDS ORDERED: PRED20TA PO (03:47)
[2022-03-08] MEDS ORDERED: IBUP-2697 PO (03:51)
[2022-03-08] MEDS ORDERED: TIOT18CA3 PO (11:47)
== END 2022-03-02 07:30 | disposition home or self-care (01) ==
LOC: ER 02:53
DX: J44.1 Chronic obstructive pulmonary disease with (acute) exacerbation (principal); R06.02 Shortness of breath; E78.00 Pure hypercholesterolemia, unspecified; I10 Essential (primary) hypertension; F12.90 Cannabis use, unspecified, uncomplicated; Z85.118 Personal history of other malignant neoplasm of bronchus and lung; Z72.89 Other problems related to lifestyle; Z79.2 Long term (current) use of antibiotics; Z79.899 Other long term (current) drug therapy
CPT/HCPCS: 71045; 80053; 83735; 83880; 84484; 85025; 93005; 94640; 96374; 96375; 99285; J2060; J2930; 94760; A4615

== ENCOUNTER 2022-03-16 01:08 | Inpatient (IN) | payer OTHER, MEDICARE ==
[~2022-03-16] VITALS: Ht 177.8 cm; Wt 82.3 kg
[~2022-03-16 01:08] MED LIST changes: -AZI25OT PO; +DOXY100C2 PO; -IBUP-1984 PO; +IBUP-2697 PO; -IPRA4AER IH; -NICO-687 TOP; +PRED10TA23 PO; -PRED5TAB PO; +TIOT18CA3 PO; -VARE1TAB24 PO
[2022-03-16] MEDS ORDERED: methylPREDNISolone sod succ 125mg/2ml vial IV ONE (01:20)
[2022-03-16] MEDS ORDERED: normal saline 1000ML IV soln IVB ONE (01:20)
[2022-03-16] MEDS ORDERED: albuterol 2.5 MG/3 ML nebule CONTNEB PRN (01:20)
[2022-03-16] MEDS ORDERED: magnesium 2GM in 50ml NS 50 ML IV ONE (01:20)
[2022-03-16] MEDS ORDERED: LORazepam 1 MG tablet PO ONE (01:45)
[2022-03-16 02:19] LABS: BASOPHILS # (AUTO) 0.1 X10'3 (0-0.2); BASOPHILS % (AUTO) 0.6 % (0-1); EOSINOPHILS % (AUTO) 0.1 % (0-6); HEMATOCRIT 37.5 % (42.0-52.0); HEMOGLOBIN 12.4 g/dl (14.0-17.9); LYMPHOCYTES # (AUTO) 1.7 X10'3 (1.1-4.8); LYMPHOCYTES % (AUTO) 9.6 % (21-51); MEAN CORPUSCULAR HEMOGLOBIN 33.2 PG (27.0-31.0); MEAN CORPUSCULAR HGB CONC 33.1 g/dL (33.0-36.5); MEAN CORPUSCULAR VOLUME 100.2 FL (78-98); MONOCYTES # (AUTO) 1.4 X10'3 (0-0.9); MONOCYTES % (AUTO) 7.8 % (2-12); NEUTROPHILS # (AUTO) 14.4 X10'3 (1.8-7.7); NEUTROPHILS % (AUTO) 81.9 % (42-75); PLATELET COUNT 235 X10'3 (140-440); RED BLOOD COUNT 3.74 X10'6 (4.70-6.10); RED CELL DISTRIBUTION WIDTH 13.8 % (11.5-14.5); WHITE BLOOD COUNT 17.6 X10'3 (4.5-11.0)
[2022-03-16 02:31] LABS: ALANINE AMINOTRANSFERASE 47 U/L (12-78); ALBUMIN 3.1 G/DL (3.4-5.0); ALBUMIN/GLOBULIN RATIO 0.9 (1.1-1.5); ALKALINE PHOSPHATASE 49 IU/L (46-116); ANION GAP 7 (8-16); ASPARTATE AMINO TRANSFERASE 18 U/L (10-37); BILIRUBIN,TOTAL 0.7 MG/DL (0.1-1.0); BLOOD UREA NITROGEN 23 MG/DL (7-18); BUN/CREATININE RATIO 30.7 (5.4-32.0); CALCIUM 8.7 MG/DL (8.5-10.1); CHLORIDE 109 MMOL/L (99-107); CREATININE 0.75 MG/DL (0.60-1.10); GLUCOSE 106 MG/DL (70-104); POTASSIUM 3.8 MMOL/L (3.5-5.1); SODIUM 148 MMOL/L (135-145); TOTAL CARBON DIOXIDE 32.2 MMOL/L (24-32); TOTAL PROTEIN 6.4 G/DL (6.4-8.2); eGFR > 90 ML/MIN
[2022-03-16] MEDS ORDERED: HYDROcodone/acetaminophen 5mg/325mg tablet PO PRN (03:15)
[2022-03-16] MEDS ORDERED: magnesium 4gm in 100ml NS 100 ML IV PRN (03:15)
[2022-03-16] MEDS ORDERED: ondansetron/PF 4mg/2ml inj IV PRN (03:15)
[2022-03-16] MEDS ORDERED: magnesium 2GM in 50ml NS 50 ML IV PRN (03:15)
[2022-03-16] MEDS ORDERED: mag hydrox/Alum hydrox/simeth 30ml oral suspension PO PRN (03:15)
[2022-03-16] MEDS ORDERED: acetaminophen 325mg tablet PO PRN ×2 (03:15)
[2022-03-16] MEDS ORDERED: potassium CL 10mEq/100ml bag 100 ML IV PRN (03:15)
[2022-03-16] MEDS ORDERED: albuterol 2.5 MG/3 ML nebule NEB PRN (03:15)
[2022-03-16] MEDS ORDERED: POTASSIUM BICARB 20meq eff tab 20 MEQ TABLET.EFF PO PRN ×2 (03:15)
[2022-03-16] MEDS ORDERED: magnesium hydroxide 30ml (MOM) UD suspension PO PRN (03:15)
[2022-03-16] MEDS: sodium chloride 0.45% 1,000 ML IV SCH ×2 (03:49→16:19)
[2022-03-16 06:00] VITALS: BP 132/59
[2022-03-16] MEDS ORDERED: NICO-687 TOP (06:02)
[2022-03-16] MEDS ORDERED: VARE1TAB24 (06:02)
[2022-03-16] MEDS ORDERED: PRED10TA23 PO (06:02)
[2022-03-16] MEDS ORDERED: BUDE0.5A11 IH (06:02)
--- NOTE | 2022-03-16 06:24 | NUR ---
Patient in room [facility] 4021. I have received report from Stella ARCHULETA and had the opportunity to ask questions and assume patient care.
[2022-03-16] MEDS: ipratropium/albuterol 3ml nebule NEB SCH ×5 (06:56→23:07)
[2022-03-16] MEDS: K and/or MAG REPLACEMENT MC SCH ×2 (07:10→20:00)
[2022-03-16] MEDS: montelukast 10mg tablet PO SCH (07:57)
[2022-03-16] MEDS: methylPREDNISolone sod succ 125mg/2ml vial IV SCH ×4 (07:58→20:00)
[2022-03-16] MEDS ORDERED: docusate sod 100mg capsule PO SCH (08:00)
[2022-03-16 10:00] VITALS: BP 131/57
[2022-03-16 15:05] VITALS: BP 157/90
[2022-03-16 18:00] VITALS: BP 173/86
[2022-03-16] MEDS: HYDROcodone/acetaminophen 10/325mg tab PO PRN (18:44)
[2022-03-16] MEDS: enoxaparin 40mg/0.4ml syringe SQ SCH (20:08)
[2022-03-16 22:00] VITALS: BP 106/70
[2022-03-17] MEDS: HYDROcodone/acetaminophen 10/325mg tab PO PRN ×2 (03:12→19:52)
[2022-03-17] MEDS: ipratropium/albuterol 3ml nebule NEB SCH ×6 (03:15→23:13)
[2022-03-17 06:00] VITALS: BP 120/58
[2022-03-17 06:11] LABS: BASOPHILS # (AUTO) 0.1 X10'3 (0-0.2); BASOPHILS % (AUTO) 0.7 % (0-1); EOSINOPHILS % (AUTO) 0 % (0-6); HEMATOCRIT 35.7 % (42.0-52.0); LYMPHOCYTES # (AUTO) 0.9 X10'3 (1.1-4.8); MEAN CORPUSCULAR HEMOGLOBIN 33.4 PG (27.0-31.0); MEAN CORPUSCULAR HGB CONC 33.6 g/dL (33.0-36.5); MEAN CORPUSCULAR VOLUME 99.3 FL (78-98); MEAN PLATELET VOLUME 7.3 FL (7.4-10.4); MONOCYTES # (AUTO) 0.9 X10'3 (0-0.9); MONOCYTES % (AUTO) 6.2 % (2-12); NEUTROPHILS # (AUTO) 13.3 X10'3 (1.8-7.7); NEUTROPHILS % (AUTO) 87.1 % (42-75); PLATELET COUNT 218 X10'3 (140-440); RED BLOOD COUNT 3.59 X10'6 (4.70-6.10); RED CELL DISTRIBUTION WIDTH 13.6 % (11.5-14.5); WHITE BLOOD COUNT 15.3 X10'3 (4.5-11.0)
[2022-03-17 06:37] LABS: ALANINE AMINOTRANSFERASE 41 U/L (12-78); ALBUMIN 2.9 G/DL (3.4-5.0); ALKALINE PHOSPHATASE 42 IU/L (46-116); ANION GAP 8 (8-16); ASPARTATE AMINO TRANSFERASE 14 U/L (10-37); BILIRUBIN,TOTAL 0.8 MG/DL (0.1-1.0); BLOOD UREA NITROGEN 17 MG/DL (7-18); BUN/CREATININE RATIO 25.4 (5.4-32.0); CALCIUM 8.7 MG/DL (8.5-10.1); CHLORIDE 103 MMOL/L (99-107); CREATININE 0.67 MG/DL (0.60-1.10); GLUCOSE 127 MG/DL (70-104); MAGNESIUM 2.1 MG/DL (1.5-2.4); POTASSIUM 3.9 MMOL/L (3.5-5.1); SODIUM 141 MMOL/L (135-145); TOTAL CARBON DIOXIDE 30.4 MMOL/L (24-32); TOTAL PROTEIN 5.8 G/DL (6.4-8.2); eGFR > 90 ML/MIN
[2022-03-17] MEDS: K and/or MAG REPLACEMENT MC SCH ×2 (07:30→20:00)
[2022-03-17] MEDS: montelukast 10mg tablet PO SCH (07:37)
[2022-03-17] MEDS: CefTRIAXone 2gm/D5W 50ml BAG 50 ML IV SCH (07:37)
[2022-03-17] MEDS: methylPREDNISolone sod succ 125mg/2ml vial IV SCH ×2 (07:37→19:52)
[2022-03-17 10:00] VITALS: BP 128/67
[2022-03-17] MEDS ORDERED: DICL20GE TP (12:30)
[2022-03-17] MEDS ORDERED: LIDO700A32 TOP (12:34)
--- NOTE | 2022-03-17 12:45 | NUR ---
Notified Dr. Leung of the need for pt's med rec to be addressed. Dr. Leung notified yesterday, 03/16/22 as well as today, 03/17/22. I was told in both instances that she would look at the home meds and address them.
--- NOTE | 2022-03-17 13:06 | NUR ---
PAGER ID: [phone] MESSAGE: Nir Zhang in [id number] is requesting Ativan. Can I have a PO order? Ashley [phone]
[2022-03-17] MEDS ORDERED: LORazepam 2 mg/ml vial IV PRN (13:15)
[2022-03-17] MEDS ORDERED: LORazepam 0.5 MG tablet PO PRN (13:15)
[2022-03-17] MEDS ORDERED: ALBU8HFA PO (15:30)
[2022-03-17] MEDS ORDERED: PRED20TA PO (15:32)
[2022-03-17] MEDS ORDERED: DICLOFENAC SODIUM 2 GM TP SCH (17:00)
[2022-03-17 18:00] VITALS: BP 135/70
--- NOTE | 2022-03-17 18:30 | NUR ---
Patient in room [facility]TH[facility] 4021. I have received report from RASHI ARCHULETA and had the opportunity to ask questions and assume patient care.
[2022-03-17] MEDS: budesonide 0.5mg/2ml UD nebule IH SCH (19:33)
[2022-03-17] MEDS: buPROPion 75mg tablet PO SCH (19:50)
[2022-03-17] MEDS: gabapentin 300mg capsule PO SCH (19:51)
[2022-03-17] MEDS: enoxaparin 40mg/0.4ml syringe SQ SCH (19:53)
[2022-03-17] MEDS ORDERED: ipratropium 0.5 MG/2.5ML nebule NEB SCH (20:00)
[2022-03-17] MEDS ORDERED: Terazosin 1mg capsule PO SCH (21:00)
[2022-03-17 22:00] VITALS: BP 136/76
[2022-03-18] MEDS: ipratropium/albuterol 3ml nebule NEB SCH ×3 (03:00→10:59)
[2022-03-18 06:16] LABS: BASOPHILS % (AUTO) 0.3 % (0-1); EOSINOPHILS % (AUTO) 0 % (0-6); HEMATOCRIT 37.5 % (42.0-52.0); HEMOGLOBIN 12.7 g/dl (14.0-17.9); LYMPHOCYTES # (AUTO) 0.6 X10'3 (1.1-4.8); LYMPHOCYTES % (AUTO) 4.2 % (21-51); MEAN CORPUSCULAR HEMOGLOBIN 33.6 PG (27.0-31.0); MEAN CORPUSCULAR HGB CONC 33.8 g/dL (33.0-36.5); MEAN CORPUSCULAR VOLUME 99.6 FL (78-98); MEAN PLATELET VOLUME 7.2 FL (7.4-10.4); MONOCYTES # (AUTO) 0.6 X10'3 (0-0.9); MONOCYTES % (AUTO) 3.8 % (2-12); NEUTROPHILS % (AUTO) 91.7 % (42-75); PLATELET COUNT 231 X10'3 (140-440); RED BLOOD COUNT 3.76 X10'6 (4.70-6.10); RED CELL DISTRIBUTION WIDTH 13.8 % (11.5-14.5); WHITE BLOOD COUNT 15.2 X10'3 (4.5-11.0)
[2022-03-18 06:25] LABS: ALANINE AMINOTRANSFERASE 38 U/L (12-78); ALBUMIN 3.2 G/DL (3.4-5.0); ALBUMIN/GLOBULIN RATIO 1.1 (1.1-1.5); ALKALINE PHOSPHATASE 44 IU/L (46-116); ANION GAP 9 (8-16); ASPARTATE AMINO TRANSFERASE 9 U/L (10-37); BILIRUBIN,TOTAL 0.9 MG/DL (0.1-1.0); BLOOD UREA NITROGEN 26 MG/DL (7-18); BUN/CREATININE RATIO 36.6 (5.4-32.0); CALCIUM 8.8 MG/DL (8.5-10.1); CHLORIDE 100 MMOL/L (99-107); CREATININE 0.71 MG/DL (0.60-1.10); GLUCOSE 163 MG/DL (70-104); MAGNESIUM 2.1 MG/DL (1.5-2.4); SODIUM 140 MMOL/L (135-145); TOTAL CARBON DIOXIDE 31.5 MMOL/L (24-32); TOTAL PROTEIN 6.1 G/DL (6.4-8.2); eGFR > 90 ML/MIN
--- NOTE | 2022-03-18 06:30 | NUR ---
Problems reprioritized. Patient report given, questions answered & plan of care reviewed with DEV ARCHULETA.
[2022-03-18] MEDS: budesonide 0.5mg/2ml UD nebule IH SCH (07:23)
[2022-03-18] MEDS: montelukast 10mg tablet PO SCH (07:53)
[2022-03-18] MEDS: gabapentin 300mg capsule PO SCH (07:53)
[2022-03-18] MEDS: buPROPion 75mg tablet PO SCH (07:54)
[2022-03-18] MEDS: CefTRIAXone 2gm/D5W 50ml BAG 50 ML IV SCH (07:54)
[2022-03-18] MEDS: methylPREDNISolone sod succ 125mg/2ml vial IV SCH (07:54)
[2022-03-18] MEDS: K and/or MAG REPLACEMENT MC SCH (07:55)
[2022-03-18] MEDS ORDERED: finasteride 5mg tablet PO SCH (08:00)
[2022-03-18] MEDS ORDERED: atorvastatin 20mg tablet PO SCH (08:00)
[2022-03-18] MEDS ORDERED: cyanocobalamin 500mcg tablet PO SCH (08:00)
[2022-03-18] MEDS ORDERED: PRED10TA23 PO ×2 (10:43)
[2022-03-18] MEDS ORDERED: IPRA3AMP9 NEB (10:43)
[2022-03-18] MEDS ORDERED: methylPREDNISolone sod succ/PF 40mg inj. IV SCH (20:00)
[2022-03-23] MEDS ORDERED: IPRA3AMP31 NEB (05:09)
[2022-03-23] MEDS ORDERED: PRED10TA PO (05:14)
== END 2022-03-18 12:20 | disposition home or self-care (01) | DRG 190 ==
LOC: ER 01:09 → ED HOLD 03:22 → ORTHO 4S 05:05
PROVIDERS: ADMIT Family Medicine; ATTEND Internal Medicine
DX: J44.1 Chronic obstructive pulmonary disease with (acute) exacerbation (principal); J96.20 Acute and chronic respiratory failure, unspecified whether with hypoxia or hypercapnia; E87.0 Hyperosmolality and hypernatremia; D72.829 Elevated white blood cell count, unspecified; E78.00 Pure hypercholesterolemia, unspecified; F41.9 Anxiety disorder, unspecified; I10 Essential (primary) hypertension; T38.0X5A Adverse effect of glucocorticoids and synthetic analogues, initial encounter; Z82.5 Family history of asthma and other chronic lower respiratory diseases; Z83.3 Family history of diabetes mellitus; Z85.118 Personal history of other malignant neoplasm of bronchus and lung; Z86.16 Personal history of COVID-19; Z87.891 Personal history of nicotine dependence; Z79.899 Other long term (current) drug therapy; Y92.89 Other specified places as the place of occurrence of the external cause
CPT/HCPCS: 36415; 71045; 80053; 83735; 83880; 84145; 84484; 85025; 87081; 93005; 94640; 94760; 96374; 96375; 97110; 97116; 97161; 97530; 99291; A7015; G0378; J0696; J1650; J2930; J3475; J3490; J7030; J7040

== ENCOUNTER 2024-05-26 16:11 | Inpatient (IN) | payer OTHER, MEDICARE ==
[2024-05-26] VITALS (7 sets, daily range): PULSE 72–123; RESP 16–32; O2SAT 96–98
[~2024-05-26] VITALS: Ht 180.3 cm; Wt 80.0 kg
[~2024-05-26 16:11] MED LIST changes: -ALB0.5UD IH; +APIX5TAB3 PO; +BUDE0.5A11 IH; -CHOL400T32 PO; +CHOL50004 PO; +DIGO-20 PO; -DOXY100C2 PO; -FINA5TAB11 PO; -GABA-534 PO; +GABA-535 PO; -IBUP-2697 PO; +IPRA4AER PO; +LORA-268 PO; +NICO-687 TOP; +PANT-47 PO; -PRED10TA23 PO; +PRED20TA PO; +VARE1TAB24 PO
[2024-05-26] MEDS: ipratropium/albuterol 3ml nebule NEB STA (16:15)
[2024-05-26] MEDS ORDERED: albuterol 2.5 MG/3 ML nebule CONTNEB PRN (16:15)
[2024-05-26] MEDS: ipratropium/albuterol 3ml nebule ONE (16:19)
[2024-05-26] MEDS: albuterol 2.5 MG/3 ML nebule ONE (16:19)
[2024-05-26] MEDS: morphine 4 MG/ML inj SYRINge IV ONE (16:23)
[2024-05-26] MEDS: LORazepam 2 mg/ml vial IV ONE (16:23)
[2024-05-26] MEDS: normal saline 1000ml 1,000 ML IV ONE (16:24)
[2024-05-26] MEDS: magnesium sulf-water 2g/50mL 50 ML IV ONE (16:24)
[2024-05-26] MEDS: methylPREDNISolone sod succ 125mg/2ml vial IV ONE (16:25)
[2024-05-26 16:36] LABS: BASOPHILS % (AUTO) 0.1 % (0-1); EOSINOPHILS % (AUTO) 0 % (0-6); HEMATOCRIT 45.3 % (42.0-52.0); HEMOGLOBIN 15.2 g/dl (14.0-17.9); LYMPHOCYTES # (AUTO) 0.7 X10'3 (1.1-4.8); MEAN CORPUSCULAR HEMOGLOBIN 33.2 PG (27.0-31.0); MEAN CORPUSCULAR HGB CONC 33.6 g/dL (33.0-36.5); MEAN PLATELET VOLUME 7.8 FL (7.4-10.4); NEUTROPHILS # (AUTO) 10.3 X10'3 (1.8-7.7); NEUTROPHILS % (AUTO) 85.9 % (42-75); PLATELET COUNT 321 X10'3 (140-440); RED BLOOD COUNT 4.58 X10'6 (4.70-6.10); RED CELL DISTRIBUTION WIDTH 12.3 % (11.5-14.5)
[2024-05-26 16:42] LABS: ALANINE AMINOTRANSFERASE 51 U/L (12-78); ALBUMIN 4.2 G/DL (3.4-5.0); ALKALINE PHOSPHATASE 70 IU/L (46-116); ANION GAP 10 (8-16); ASPARTATE AMINO TRANSFERASE 39 U/L (10-37); BILIRUBIN,TOTAL 0.9 MG/DL (0.1-1.0); BLOOD UREA NITROGEN 17 MG/DL (7-18); CALCIUM 8.6 MG/DL (8.5-10.1); CHLORIDE 100 MMOL/L (99-107); CREATININE 1.06 MG/DL (0.60-1.10); GLUCOSE 148 MG/DL (70-104); POTASSIUM 3.9 MMOL/L (3.5-5.1); SODIUM 136 MMOL/L (135-145); TOTAL CARBON DIOXIDE 25.7 MMOL/L (24-32); TOTAL PROTEIN 8.3 G/DL (6.4-8.2); eCRCL 69 ML/MIN; eGFR 69 ML/MIN
[2024-05-26 16:47] LABS: ABG BASE EXCESS -4.1 mmol/L (-2.0-3.0); ABG HCO3 22.8 mmol/L (21.0-28.0); ABG OXYGEN SATURATION 97.6 % (94.0-98.0); ABG PCO2 (T) 52.5 mmHg (35.0-48.0); ABG PH (T) 7.264 (7.350-7.450); ABG PO2 (T) 120.1 mmHg (83.0-108.0); ALLEN'S TEST POSITIVE; FCOHb 0.3 % (0.5-1.5); FHHb 2.4 % (0.0-5.0); FLOW 8 L/min; FMetHb 0.2 % (0.0-1.5); FO2Hb 97.1 % (94.0-98.0); PATIENT TEMPERATURE 38.9; TOTAL HEMOGLOBIN 15.4 G/dl (13.5-17.5)
[2024-05-26 16:50] LABS: PRO BRAIN NATRIURETIC PEPTIDE 637 PG/ML (0-125)
[2024-05-26] MEDS: acetaminophen 1,000mg/100ml IV 100 ML IV ONE (16:56)
[2024-05-26] MEDS ORDERED: BUPR150T8 PO (17:41)
[2024-05-26] MEDS ORDERED: magnesium Cl slow-release 64mg tablet PO PRN (17:55)
[2024-05-26] MEDS ORDERED: potassium Cl 20 mEq SR tablet PO PRN ×2 (17:55)
[2024-05-26] MEDS ORDERED: acetaminophen 325mg tablet PO PRN ×2 (17:55)
[2024-05-26] MEDS ORDERED: ondansetron/PF 4mg/2ml inj IV PRN (17:55)
[2024-05-26] MEDS ORDERED: potassium Cl 40MEQ/1/2NS 520ml 520 ML IV PRN (17:55)
[2024-05-26] MEDS ORDERED: magnesium sulf-water 2g/50mL 50 ML IV PRN (17:55)
[2024-05-26] MEDS ORDERED: magnesium sulf-water 4G/100mL 100 ML IV PRN (17:55)
[2024-05-26] MEDS ORDERED: PRED5TAB PO (18:23)
[2024-05-26] MEDS: albuterol 2.5 MG/3 ML nebule NEB SCH (19:12)
[2024-05-26] MEDS: methylPREDNISolone sod succ 125mg/2ml vial IV SCH (19:32)
[2024-05-26] MEDS: heparin, porcine 5000 units/ml vial SQ SCH (19:32)
[2024-05-26] MEDS: oseltamivir phos 75mg capsule PO SCH (20:16)
[2024-05-27] VITALS (20 sets, daily range): BP systolic 120–146; BP diastolic 72–78; PULSE 10–134; RESP 18–32; TEMP 98.2–98.7; O2SAT 92–99
[2024-05-27 02:52] LABS: BASOPHILS % (AUTO) 0.1 % (0-1); EOSINOPHILS % (AUTO) 0.1 % (0-6); HEMATOCRIT 38.9 % (42.0-52.0); HEMOGLOBIN 13.4 g/dl (14.0-17.9); LYMPHOCYTES # (AUTO) 0.3 X10'3 (1.1-4.8); LYMPHOCYTES % (AUTO) 3.4 % (21-51); MEAN CORPUSCULAR HGB CONC 34.4 g/dL (33.0-36.5); MEAN CORPUSCULAR VOLUME 98.9 FL (78-98); MEAN PLATELET VOLUME 7.9 FL (7.4-10.4); MONOCYTES # (AUTO) 0.4 X10'3 (0-0.9); MONOCYTES % (AUTO) 4.6 % (2-12); NEUTROPHILS # (AUTO) 7.4 X10'3 (1.8-7.7); NEUTROPHILS % (AUTO) 91.8 % (42-75); PLATELET COUNT 279 X10'3 (140-440); RED BLOOD COUNT 3.94 X10'6 (4.70-6.10); RED CELL DISTRIBUTION WIDTH 12.1 % (11.5-14.5)
[2024-05-27 03:09] LABS: ALANINE AMINOTRANSFERASE 40 U/L (12-78); ALBUMIN 3.2 G/DL (3.4-5.0); ALBUMIN/GLOBULIN RATIO 0.9 (1.1-1.5); ALKALINE PHOSPHATASE 54 IU/L (46-116); ANION GAP 7 (8-16); ASPARTATE AMINO TRANSFERASE 39 U/L (10-37); BILIRUBIN,TOTAL 0.5 MG/DL (0.1-1.0); BLOOD UREA NITROGEN 20 MG/DL (7-18); BUN/CREATININE RATIO 25.3 (10.0-20.0); CALCIUM 7.9 MG/DL (8.5-10.1); CHLORIDE 105 MMOL/L (99-107); CREATININE 0.79 MG/DL (0.60-1.10); GLUCOSE 161 MG/DL (70-104); SODIUM 138 MMOL/L (135-145); TOTAL CARBON DIOXIDE 25.7 MMOL/L (24-32); TOTAL PROTEIN 6.8 G/DL (6.4-8.2); eCRCL 93 ML/MIN; eGFR > 90 ML/MIN
[2024-05-27] MEDS: LORazepam 2 mg/ml vial IV ONE ×2 (05:56→15:13)
[2024-05-27] MEDS: CefTRIAXone 2gm/D5W 50ml BAG 50 ML IV SCH (08:43)
[2024-05-27] MEDS: azithromycin/NS 500mg/250ml 250 ML IV SCH (09:02)
[2024-05-27] MEDS: morphine 2 MG/ML inj. syringe IV PRN ×2 (10:41→23:04)
[2024-05-27] MEDS: methylPREDNISolone sod succ/PF 40mg inj. IV SCH ×2 (14:20→14:40)
[2024-05-27] MEDS: albuterol 2.5 MG/3 ML nebule NEB PRN (15:12)
[2024-05-27] MEDS: morphine 4 MG/ML inj SYRINge IV ONE (15:13)
[2024-05-27] MEDS: HYDROcodone/acetaminophen 5mg/325mg tablet PO PRN (21:47)
[2024-05-28] VITALS (26 sets, daily range): BP systolic 95–159; BP diastolic 37–91; PULSE 62–98; RESP 14–26; TEMP 98.2–98.5; O2SAT 66–100
[2024-05-28 06:54] LABS: BASOPHILS % (AUTO) 0.3 % (0-1); EOSINOPHILS % (AUTO) 0 % (0-6); HEMATOCRIT 41.5 % (42.0-52.0); HEMOGLOBIN 13.9 g/dl (14.0-17.9); LYMPHOCYTES # (AUTO) 0.3 X10'3 (1.1-4.8); MEAN CORPUSCULAR HEMOGLOBIN 33.5 PG (27.0-31.0); MEAN CORPUSCULAR HGB CONC 33.5 g/dL (33.0-36.5); MEAN CORPUSCULAR VOLUME 99.9 FL (78-98); MEAN PLATELET VOLUME 8.1 FL (7.4-10.4); MONOCYTES # (AUTO) 0.2 X10'3 (0-0.9); MONOCYTES % (AUTO) 2.4 % (2-12); NEUTROPHILS # (AUTO) 9.5 X10'3 (1.8-7.7); NEUTROPHILS % (AUTO) 94.3 % (42-75); PLATELET COUNT 292 X10'3 (140-440); RED BLOOD COUNT 4.15 X10'6 (4.70-6.10); RED CELL DISTRIBUTION WIDTH 12.2 % (11.5-14.5); WHITE BLOOD COUNT 10.1 X10'3 (4.5-11.0)
[2024-05-28 06:55] LABS: ALANINE AMINOTRANSFERASE 50 U/L (12-78); ALBUMIN 3.2 G/DL (3.4-5.0); ALBUMIN/GLOBULIN RATIO 0.9 (1.1-1.5); ALKALINE PHOSPHATASE 48 IU/L (46-116); ANION GAP 4 (8-16); ASPARTATE AMINO TRANSFERASE 49 U/L (10-37); BILIRUBIN,TOTAL 0.5 MG/DL (0.1-1.0); BLOOD UREA NITROGEN 30 MG/DL (7-18); CALCIUM 8.2 MG/DL (8.5-10.1); CHLORIDE 104 MMOL/L (99-107); CREATININE 0.77 MG/DL (0.60-1.10); GLUCOSE 131 MG/DL (70-104); POTASSIUM 4.5 MMOL/L (3.5-5.1); SODIUM 139 MMOL/L (135-145); TOTAL CARBON DIOXIDE 31.1 MMOL/L (24-32); TOTAL PROTEIN 6.7 G/DL (6.4-8.2); eCRCL 95 ML/MIN; eGFR > 90 ML/MIN
[2024-05-28] MEDS: furosemide 20MG tablet PO SCH (07:33)
[2024-05-28] MEDS: pantoprazole 40mg Tablet.DR PO SCH (07:33)
[2024-05-28] MEDS: LORazepam 2 mg/ml vial IV ONE (08:40)
[2024-05-28] MEDS: guaiFENesin ER 600mg tablet PO SCH (19:44)
[2024-05-28] MEDS: gabapentin 400mg capsule PO SCH (19:44)
[2024-05-28] MEDS: VARENICLINE TARTRATE 1 MG PO SCH (20:00)
[2024-05-28] MEDS: TERAZOSIN HCL 2 MG PO SCH (21:00)
[2024-05-29] VITALS (24 sets, daily range): BP systolic 117–144; BP diastolic 68–82; PULSE 59–93; RESP 16–25; TEMP 97.6–98.5; O2SAT 93–97
[2024-05-29 07:18] LABS: BASOPHILS % (AUTO) 0.1 % (0-1); EOSINOPHILS % (AUTO) 0 % (0-6); HEMATOCRIT 41.8 % (42.0-52.0); HEMOGLOBIN 14.2 g/dl (14.0-17.9); LYMPHOCYTES # (AUTO) 0.4 X10'3 (1.1-4.8); LYMPHOCYTES % (AUTO) 3.9 % (21-51); MEAN CORPUSCULAR HEMOGLOBIN 33.9 PG (27.0-31.0); MEAN CORPUSCULAR HGB CONC 33.9 g/dL (33.0-36.5); MEAN CORPUSCULAR VOLUME 99.9 FL (78-98); MEAN PLATELET VOLUME 8.4 FL (7.4-10.4); MONOCYTES # (AUTO) 0.5 X10'3 (0-0.9); NEUTROPHILS # (AUTO) 9.1 X10'3 (1.8-7.7); PLATELET COUNT 285 X10'3 (140-440); RED BLOOD COUNT 4.19 X10'6 (4.70-6.10); RED CELL DISTRIBUTION WIDTH 12.1 % (11.5-14.5)
[2024-05-29 07:39] LABS: ALANINE AMINOTRANSFERASE 55 U/L (12-78); ALBUMIN 3.1 G/DL (3.4-5.0); ALBUMIN/GLOBULIN RATIO 0.9 (1.1-1.5); ALKALINE PHOSPHATASE 44 IU/L (46-116); ANION GAP 5 (8-16); ASPARTATE AMINO TRANSFERASE 42 U/L (10-37); BILIRUBIN,TOTAL 0.6 MG/DL (0.1-1.0); BLOOD UREA NITROGEN 35 MG/DL (7-18); BUN/CREATININE RATIO 45.5 (10.0-20.0); CALCIUM 8.5 MG/DL (8.5-10.1); CHLORIDE 102 MMOL/L (99-107); CREATININE 0.77 MG/DL (0.60-1.10); GLUCOSE 126 MG/DL (70-104); POTASSIUM 4.2 MMOL/L (3.5-5.1); SODIUM 139 MMOL/L (135-145); TOTAL PROTEIN 6.7 G/DL (6.4-8.2); eCRCL 95 ML/MIN; eGFR > 90 ML/MIN
[2024-05-29] MEDS: cyanocobalamin 500mcg tablet PO SCH (08:12)
[2024-05-29] MEDS: methylPREDNISolone sod succ/PF 40mg inj. IV SCH (08:34)
[2024-05-29] MEDS: Terazosin 1mg capsule PO SCH (19:59)
[2024-05-29] MEDS: apixaban 5mg tablet PO SCH (20:00)
[2024-05-29] MEDS: metoprolol succinate 25mg (24-HOUR) SR. Tablet PO SCH (20:08)
[2024-05-30] VITALS (19 sets, daily range): BP systolic 110–180; BP diastolic 60–89; PULSE 59–92; RESP 16–26; TEMP 96.7–98.2; O2SAT 90–99
[2024-05-30 07:46] LABS: BASOPHILS % (AUTO) 0.2 % (0-1); EOSINOPHILS % (AUTO) 0 % (0-6); HEMATOCRIT 45.2 % (42.0-52.0); HEMOGLOBIN 15.4 g/dl (14.0-17.9); LYMPHOCYTES # (AUTO) 0.4 X10'3 (1.1-4.8); MEAN CORPUSCULAR HEMOGLOBIN 33.4 PG (27.0-31.0); MEAN CORPUSCULAR HGB CONC 34.1 g/dL (33.0-36.5); MEAN CORPUSCULAR VOLUME 98.1 FL (78-98); MEAN PLATELET VOLUME 8.3 FL (7.4-10.4); MONOCYTES # (AUTO) 0.5 X10'3 (0-0.9); MONOCYTES % (AUTO) 6.1 % (2-12); NEUTROPHILS # (AUTO) 7.9 X10'3 (1.8-7.7); NEUTROPHILS % (AUTO) 88.7 % (42-75); PLATELET COUNT 306 X10'3 (140-440); WHITE BLOOD COUNT 8.9 X10'3 (4.5-11.0)
[2024-05-30 08:06] LABS: ALANINE AMINOTRANSFERASE 70 U/L (12-78); ALBUMIN 3.6 G/DL (3.4-5.0); ALKALINE PHOSPHATASE 48 IU/L (46-116); ANION GAP 9 (8-16); ASPARTATE AMINO TRANSFERASE 40 U/L (10-37); BILIRUBIN,TOTAL 0.8 MG/DL (0.1-1.0); BLOOD UREA NITROGEN 37 MG/DL (7-18); BUN/CREATININE RATIO 48.1 (10.0-20.0); CALCIUM 8.9 MG/DL (8.5-10.1); CHLORIDE 102 MMOL/L (99-107); CREATININE 0.77 MG/DL (0.60-1.10); GLUCOSE 122 MG/DL (70-104); POTASSIUM 4.3 MMOL/L (3.5-5.1); SODIUM 141 MMOL/L (135-145); TOTAL CARBON DIOXIDE 30.4 MMOL/L (24-32); TOTAL PROTEIN 7.3 G/DL (6.4-8.2); eCRCL 95 ML/MIN; eGFR > 90 ML/MIN
[2024-05-30] MEDS: morphine 2 MG/ML inj. syringe IV ONE ×2 (08:09→14:52)
[2024-05-30 08:32] LABS: HEMOGLOBIN A1C 5.5 % (4.5-6.2)
[2024-05-30] MEDS: LORazepam 0.5 MG tablet PO ONE (15:23)
[2024-05-30] MEDS ORDERED: APIX5TAB3 PO (16:55)
[2024-05-30] MEDS ORDERED: METO-395 PO (16:55)
== END 2024-05-30 18:30 | DRG 193 ==
LOC: ER 16:12 → ED HOLD 18:09 → PCU 3S 05-27 16:30
PROVIDERS: ADMIT Internal Medicine; ATTEND Internal Medicine
PROC: 5A0935A Assistance with Respiratory Ventilation, Less than 24 Consecutive Hours, High Flow/Velocity Cannula (ICD-10-PCS; principal; 2024-05-26)
PROC: 5A0945A Assistance with Respiratory Ventilation, 24-96 Consecutive Hours, High Flow/Velocity Cannula (ICD-10-PCS; 2024-05-27)
DX: J10.00 Influenza due to other identified influenza virus with unspecified type of pneumonia (principal); J96.01 Acute respiratory failure with hypoxia; J96.02 Acute respiratory failure with hypercapnia; E87.29 Other acidosis; I48.20 Chronic atrial fibrillation, unspecified; J44.1 Chronic obstructive pulmonary disease with (acute) exacerbation; Z20.822 Contact with and (suspected) exposure to COVID-19; J43.9 Emphysema, unspecified; I10 Essential (primary) hypertension; N40.0 Benign prostatic hyperplasia without lower urinary tract symptoms; F41.9 Anxiety disorder, unspecified; E78.00 Pure hypercholesterolemia, unspecified; Z83.3 Family history of diabetes mellitus; Z85.118 Personal history of other malignant neoplasm of bronchus and lung; Z79.01 Long term (current) use of anticoagulants; Z79.899 Other long term (current) drug therapy; Z87.891 Personal history of nicotine dependence
CPT/HCPCS: 36415; 36600; 71045; 80053; 82803; 83036; 83605; 83880; 84145; 85018; 85025; 87502; 87503; 87811; 93005; 93306; 94640; 94760; 96374; 96375; 97161; 97530; 99291; A4615; A6258; G0378; J0131; J0456; J0696; J1644; J2060; J2270; J2919; J7030; J7050

== ENCOUNTER 2024-06-04 00:33 | Inpatient (IN) | payer MEDICARE, OTHER ==
[2024-06-04] VITALS (26 sets, daily range): BP systolic 126–142; BP diastolic 68–74; PULSE 56–86; RESP 12–27; TEMP 97.1–98.1; O2SAT 94–98
[~2024-06-04] VITALS: Ht 182.9 cm; Wt 81.8 kg
[~2024-06-04 00:33] MED LIST changes: -ARFO15VI NEB; -ATOR20TA66 PO; -BUDE0.5A11 IH; -BUPR75TA8 PO; -CHOL50004 PO; -DIGO-20 PO; -LORA-268 PO; +METO-395 PO; -NICO-687 TOP; -OMEG-79 PO; -PANT-47 PO; +PRED5TAB PO; -TIOT18CA3 PO
[2024-06-04] MEDS: methylPREDNISolone sod succ 125mg/2ml vial IV ONE (00:58)
[2024-06-04 00:59] LABS: BASOPHILS % (AUTO) 0.2 % (0-1); EOSINOPHILS % (AUTO) 0 % (0-6); HEMATOCRIT 46.3 % (42.0-52.0); LYMPHOCYTES # (AUTO) 0.4 X10'3 (1.1-4.8); LYMPHOCYTES % (AUTO) 3.1 % (21-51); MEAN CORPUSCULAR HEMOGLOBIN 33.5 PG (27.0-31.0); MEAN CORPUSCULAR HGB CONC 34.7 g/dL (33.0-36.5); MEAN CORPUSCULAR VOLUME 96.6 FL (78-98); MEAN PLATELET VOLUME 8.6 FL (7.4-10.4); MONOCYTES # (AUTO) 0.4 X10'3 (0-0.9); MONOCYTES % (AUTO) 3.5 % (2-12); NEUTROPHILS # (AUTO) 11.6 X10'3 (1.8-7.7); NEUTROPHILS % (AUTO) 93.2 % (42-75); PLATELET COUNT 280 X10'3 (140-440); RED BLOOD COUNT 4.79 X10'6 (4.70-6.10); RED CELL DISTRIBUTION WIDTH 11.9 % (11.5-14.5); WHITE BLOOD COUNT 12.4 X10'3 (4.5-11.0)
[2024-06-04] MEDS: magnesium sulf-water 2g/50mL 50 ML IV ONE (00:59)
[2024-06-04 01:04] LABS: ABG BASE EXCESS -2.9 mmol/L (-2.0-3.0); ABG HCO3 21.8 mmol/L (21.0-28.0); ABG OXYGEN SATURATION 88.2 % (94.0-98.0); ABG PCO2 (T) 36.2 mmHg (35.0-48.0); ABG PH (T) 7.392 (7.350-7.450); ABG PO2 (T) 49.6 mmHg (83.0-108.0); FCOHb 0.1 % (0.5-1.5); FHHb 11.8 % (0.0-5.0); FMetHb 0.1 % (0.0-1.5); PATIENT TEMPERATURE 35.8; TOTAL HEMOGLOBIN 16.7 G/dl (13.5-17.5)
[2024-06-04] MEDS: albuterol 2.5 MG/3 ML nebule NEB ONE (01:07)
[2024-06-04 01:11] LABS: D-DIMER 0.37 MG/L FEU (0-0.50)
[2024-06-04 01:17] LABS: ALANINE AMINOTRANSFERASE 85 U/L (12-78); ALBUMIN 3.7 G/DL (3.4-5.0); ALBUMIN/GLOBULIN RATIO 1.2 (1.1-1.5); ALKALINE PHOSPHATASE 43 IU/L (46-116); ANION GAP 2 (8-16); ASPARTATE AMINO TRANSFERASE 27 U/L (10-37); BLOOD UREA NITROGEN 48 MG/DL (7-18); BUN/CREATININE RATIO 49.5 (10.0-20.0); CALCIUM 8.5 MG/DL (8.5-10.1); CHLORIDE 99 MMOL/L (99-107); CREATININE 0.97 MG/DL (0.60-1.10); GLUCOSE 139 MG/DL (70-104); POTASSIUM 4.9 MMOL/L (3.5-5.1); SODIUM 135 MMOL/L (135-145); TOTAL CARBON DIOXIDE 33.8 MMOL/L (24-32); TOTAL PROTEIN 6.9 G/DL (6.4-8.2); eGFR 77 ML/MIN
[2024-06-04 01:24] LABS: PRO BRAIN NATRIURETIC PEPTIDE 172 PG/ML (0-125)
[2024-06-04 01:57] LABS: ABG BASE EXCESS 1.7 mmol/L (-2.0-3.0); ABG HCO3 27.3 mmol/L (21.0-28.0); ABG OXYGEN SATURATION 99.5 % (94.0-98.0); ABG PCO2 (T) 44.4 mmHg (35.0-48.0); ABG PH (T) 7.403 (7.350-7.450); ABG PO2 (T) 365.7 mmHg (83.0-108.0); ALLEN'S TEST POSITIVE; FCOHb 0.3 % (0.5-1.5); FHHb 0.5 % (0.0-5.0); FMetHb 0.1 % (0.0-1.5); FO2Hb 99.1 % (94.0-98.0); MODE MASK - BIPAP; RESPIRATORY RATE 12 b/min; TOTAL HEMOGLOBIN 16.1 G/dl (13.5-17.5)
[2024-06-04] MEDS ORDERED: HYDR-3965 PO (02:54)
[2024-06-04] MEDS ORDERED: GUAI-425 PO (02:54)
[2024-06-04] MEDS ORDERED: GABA-1555 PO (02:54)
[2024-06-04] MEDS ORDERED: LORA-268 PO (02:54)
[2024-06-04] MEDS ORDERED: PANT-47 PO (02:54)
[2024-06-04] MEDS ORDERED: ESCI10TA PO (02:54)
[2024-06-04] MEDS ORDERED: ALBU8HFA INH (02:54)
[2024-06-04] MEDS ORDERED: FURO-150 PO (02:54)
[2024-06-04] MEDS ORDERED: METO-395 PO (02:56)
[2024-06-04] MEDS ORDERED: APIX5TAB3 PO (02:56)
[2024-06-04] MEDS ORDERED: potassium Cl 40MEQ/1/2NS 520ml 520 ML IV PRN (03:45)
[2024-06-04] MEDS ORDERED: magnesium Cl slow-release 64mg tablet PO PRN (03:45)
[2024-06-04] MEDS ORDERED: ondansetron/PF 4mg/2ml inj IV PRN (03:45)
[2024-06-04] MEDS ORDERED: magnesium sulf-water 2g/50mL 50 ML IV PRN (03:45)
[2024-06-04] MEDS ORDERED: acetaminophen 325mg tablet PO PRN (03:45)
[2024-06-04] MEDS ORDERED: magnesium hydroxide 30ml (MOM) UD suspension PO PRN (03:45)
[2024-06-04] MEDS ORDERED: mag hydrox/Alum hydrox/simeth 30ml oral suspension PO PRN (03:45)
[2024-06-04] MEDS ORDERED: potassium Cl 20 mEq SR tablet PO PRN ×2 (03:45)
[2024-06-04] MEDS ORDERED: morphine 2 MG/ML inj. syringe IV PRN (03:45)
[2024-06-04] MEDS ORDERED: magnesium sulf-water 4G/100mL 100 ML IV PRN (03:45)
[2024-06-04] MEDS: azithromycin/NS 500mg/250ml 250 ML IV SCH (04:33)
[2024-06-04] MEDS: CefTRIAXone 2gm/D5W 50ml BAG 50 ML IV SCH (04:33)
[2024-06-04] MEDS: normal saline 1000ml 1,000 ML IV SCH (04:33)
[2024-06-04 05:43] LABS: MAGNESIUM 2.6 MG/DL (1.5-2.4)
[2024-06-04] MEDS: docusate sod 100mg capsule PO SCH (08:00)
[2024-06-04] MEDS: ipratropium/albuterol 3ml nebule NEB SCH (08:02)
[2024-06-04] MEDS: methylPREDNISolone sod succ 125mg/2ml vial IV SCH (08:26)
[2024-06-04] MEDS: K and/or MAG REPLACEMENT MC SCH (08:27)
[2024-06-04] MEDS: morphine 2 MG/ML inj. syringe IV ONE (08:37)
[2024-06-04] MEDS: furosemide 20 MG/2 ML vial IV ONE (12:59)
[2024-06-04] MEDS: morphine 2 MG/ML inj. syringe IV PRN (20:27)
[2024-06-04] MEDS: enoxaparin 40mg/0.4ml syringe SQ SCH (20:31)
[2024-06-05] VITALS (24 sets, daily range): BP systolic 115–146; BP diastolic 58–97; PULSE 57–92; RESP 12–26; TEMP 97.2–99.2; O2SAT 90–99
[2024-06-05 07:14] LABS: BASOPHILS % (AUTO) 0.1 % (0-1); EOSINOPHILS % (AUTO) 0 % (0-6); HEMATOCRIT 38.8 % (42.0-52.0); HEMOGLOBIN 13.1 g/dl (14.0-17.9); LYMPHOCYTES # (AUTO) 0.5 X10'3 (1.1-4.8); LYMPHOCYTES % (AUTO) 3.9 % (21-51); MEAN CORPUSCULAR HEMOGLOBIN 32.8 PG (27.0-31.0); MEAN CORPUSCULAR HGB CONC 33.7 g/dL (33.0-36.5); MEAN CORPUSCULAR VOLUME 97.4 FL (78-98); MEAN PLATELET VOLUME 8.6 FL (7.4-10.4); MONOCYTES # (AUTO) 0.9 X10'3 (0-0.9); MONOCYTES % (AUTO) 6.4 % (2-12); NEUTROPHILS # (AUTO) 11.9 X10'3 (1.8-7.7); NEUTROPHILS % (AUTO) 89.6 % (42-75); PLATELET COUNT 255 X10'3 (140-440); RED BLOOD COUNT 3.99 X10'6 (4.70-6.10); RED CELL DISTRIBUTION WIDTH 11.9 % (11.5-14.5); WHITE BLOOD COUNT 13.2 X10'3 (4.5-11.0)
[2024-06-05 07:19] LABS: ALANINE AMINOTRANSFERASE 60 U/L (12-78); ALBUMIN 2.9 G/DL (3.4-5.0); ALBUMIN/GLOBULIN RATIO 1.2 (1.1-1.5); ALKALINE PHOSPHATASE 28 IU/L (46-116); ANION GAP 7 (8-16); ASPARTATE AMINO TRANSFERASE 18 U/L (10-37); BILIRUBIN,TOTAL 0.5 MG/DL (0.1-1.0); BLOOD UREA NITROGEN 33 MG/DL (7-18); BUN/CREATININE RATIO 46.5 (10.0-20.0); CALCIUM 7.7 MG/DL (8.5-10.1); CHLORIDE 101 MMOL/L (99-107); CREATININE 0.71 MG/DL (0.60-1.10); GLUCOSE 149 MG/DL (70-104); MAGNESIUM 2.3 MG/DL (1.5-2.4); POTASSIUM 4.2 MMOL/L (3.5-5.1); SODIUM 138 MMOL/L (135-145); TOTAL CARBON DIOXIDE 30.4 MMOL/L (24-32); TOTAL PROTEIN 5.4 G/DL (6.4-8.2); eCRCL 106 ML/MIN; eGFR > 90 ML/MIN
[2024-06-05] MEDS: furosemide 40 MG/4 ML oral solution UD cup PO SCH (13:33)
[2024-06-05] MEDS: methylPREDNISolone sod succ 125mg/2ml vial IV SCH (13:36)
[2024-06-05] MEDS ORDERED: albuterol 2.5 MG/3 ML nebule NEB PRN (18:15)
[2024-06-05] MEDS: apixaban 5mg tablet PO SCH (19:37)
[2024-06-05] MEDS: gabapentin 400mg capsule PO SCH (19:38)
[2024-06-05] MEDS ORDERED: ipratropium/albuterol 3ml nebule NEB SCH (20:00)
[2024-06-06] VITALS (11 sets, daily range): BP systolic 136–139; BP diastolic 74–81; PULSE 59–89; RESP 12–20; TEMP 97.2–97.8; O2SAT 96–98
[2024-06-06 07:40] LABS: BASOPHILS # (AUTO) 0.1 X10'3 (0-0.2); BASOPHILS % (AUTO) 0.4 % (0-1); EOSINOPHILS % (AUTO) 0 % (0-6); HEMATOCRIT 40.9 % (42.0-52.0); HEMOGLOBIN 13.7 g/dl (14.0-17.9); LYMPHOCYTES # (AUTO) 0.3 X10'3 (1.1-4.8); LYMPHOCYTES % (AUTO) 2.2 % (21-51); MEAN CORPUSCULAR HEMOGLOBIN 33.3 PG (27.0-31.0); MEAN CORPUSCULAR HGB CONC 33.5 g/dL (33.0-36.5); MEAN CORPUSCULAR VOLUME 99.1 FL (78-98); MEAN PLATELET VOLUME 8.6 FL (7.4-10.4); MONOCYTES # (AUTO) 0.5 X10'3 (0-0.9); MONOCYTES % (AUTO) 3.4 % (2-12); NEUTROPHILS # (AUTO) 14.1 X10'3 (1.8-7.7); PLATELET COUNT 245 X10'3 (140-440); RED BLOOD COUNT 4.12 X10'6 (4.70-6.10); RED CELL DISTRIBUTION WIDTH 11.8 % (11.5-14.5)
[2024-06-06 08:13] LABS: ALANINE AMINOTRANSFERASE 62 U/L (12-78); ALBUMIN 3.2 G/DL (3.4-5.0); ALBUMIN/GLOBULIN RATIO 1.2 (1.1-1.5); ALKALINE PHOSPHATASE 33 IU/L (46-116); ANION GAP 9 (8-16); ASPARTATE AMINO TRANSFERASE 18 U/L (10-37); BILIRUBIN,TOTAL 0.9 MG/DL (0.1-1.0); BLOOD UREA NITROGEN 27 MG/DL (7-18); BUN/CREATININE RATIO 43.5 (10.0-20.0); CALCIUM 8.2 MG/DL (8.5-10.1); CHLORIDE 101 MMOL/L (99-107); CREATININE 0.62 MG/DL (0.60-1.10); GLUCOSE 141 MG/DL (70-104); MAGNESIUM 2.2 MG/DL (1.5-2.4); POTASSIUM 4.5 MMOL/L (3.5-5.1); SODIUM 138 MMOL/L (135-145); TOTAL CARBON DIOXIDE 28.5 MMOL/L (24-32); TOTAL PROTEIN 5.8 G/DL (6.4-8.2); eCRCL 122 ML/MIN; eGFR > 90 ML/MIN
[2024-06-06] MEDS: cyanocobalamin 500mcg tablet PO SCH (08:18)
[2024-06-06] MEDS: ESCITALOPRAM 10 mg tablet 10 MG TABLET PO SCH (08:19)
== END 2024-06-06 14:40 | DRG 871 ==
LOC: ER 00:34 → ED HOLD 03:01 → PCU 3S 07:40
PROVIDERS: ADMIT Internal Medicine Critical Care Medicine; ATTEND Internal Medicine
PROC: 5A09357 Assistance with Respiratory Ventilation, Less than 24 Consecutive Hours, Continuous Positive Airway Pressure (ICD-10-PCS; principal; 2024-06-04)
PROC: 5A09357 Assistance with Respiratory Ventilation, Less than 24 Consecutive Hours, Continuous Positive Airway Pressure (ICD-10-PCS; 2024-06-05)
PROC: 5A09357 Assistance with Respiratory Ventilation, Less than 24 Consecutive Hours, Continuous Positive Airway Pressure (ICD-10-PCS; 2024-06-06)
DX: A41.89 Other specified sepsis (principal); J12.89 Other viral pneumonia; J15.8 Pneumonia due to other specified bacteria; J96.21 Acute and chronic respiratory failure with hypoxia; J44.1 Chronic obstructive pulmonary disease with (acute) exacerbation; Z20.822 Contact with and (suspected) exposure to COVID-19; N40.0 Benign prostatic hyperplasia without lower urinary tract symptoms; I48.0 Paroxysmal atrial fibrillation; F32.A Depression, unspecified; F43.10 Post-traumatic stress disorder, unspecified; F41.9 Anxiety disorder, unspecified; E78.00 Pure hypercholesterolemia, unspecified; J43.9 Emphysema, unspecified; I10 Essential (primary) hypertension; Z79.01 Long term (current) use of anticoagulants; Z79.899 Other long term (current) drug therapy; Z85.118 Personal history of other malignant neoplasm of bronchus and lung; Z83.3 Family history of diabetes mellitus
CPT/HCPCS: 36415; 36600; 71045; 80053; 82803; 83605; 83735; 83880; 84145; 84484; 85018; 85025; 85379; 85651; 87040; 87081; 87502; 87503; 87811; 93005; 94640; 94660; 94760; 97110; 97116; 97162; 99291; A4615; G0378; J0456; J0696; J1650; J1940; J2270; J2919; J7030